=== PATIENT | male | born 1960 | race Caucasian/White ===

== ENCOUNTER 2024-11-22 12:30 | Inpatient (IN) | payer OTHER ==
[~2024-11-22] VITALS: Ht 177.8 cm; Wt 96.6 kg
--- NOTE | 2024-11-22 12:44 | ED.PDOC ---
SOB-HPI HPI Comments This is a 64-year-old male who comes in with chief complaint of shortness of breaths with no chest pain. The patient states that the shortness for breath actually started on the 07 of November. This past Tuesday, the patient went to [facility] and was given a prescription of Lasix for worsening CHF. He is also complaining of some leg swelling. He states that his shortness for breath worsens with exertion as well as laying flat. At that time the patient also had what seems to be an echocardiogram at [facility] and it was negative. He is having a cough that is productive with greenish sputum. He denies any nausea or vomiting. When the paramedics arrived on scene, the patient had an oxygen saturation between 88 and 91. The patient was placed on 2 L nasal cannula and the patient's oxygen saturation went up to 95%. When the patient was placed on a cardiac rhythm, the patient had a rhythm of atrial fibrillation at a rate of 120. He does state that he was diagnosed with atrial fibrillation at [facility] on Tuesday as well. Upon arrival, the patient remains on the oxygen nasal cannula. He is able to speak in full sentences. 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 Modifying Factors: Exertion, Laying flat Associated Signs and Symptoms: Cough, Leg Swelling Quality: Other (No chest pain) If cough with SOB: Productive, Green Past Medical History PAST MEDICAL HISTORY: Anemia, CHF, High Lipids Surgical History (Other): Cervical neck surgery Family History Family History: Family hx of Cancer Social History Smoker: Non-Smoker Alcohol: Occasionally Drugs: Denies Drug Use Lives In: Home Constitutional: denies: chills, diaphoresis, fatigue, fever, malaise, sweats, weakness, others EENTM: denies: blurred vision, double vision, ear bleeding, ear discharge, ear drainage, ear pain, ear ringing, eye pain, eye redness, hearing loss, mouth pain, mouth swelling, nasal discharge, nose bleeding, nose congestion, nose pain, photophobia, tearing, throat pain, throat swelling, voice changes, others Respiratory: reports: cough, shortness of breath; denies: hemoptysis, orthopnea, SOB at rest, SOB with excertion, stridor, wheezing, others Cardiovascular: denies: chest pain, dizzy spells, diaphoresis, Dyspnea on exertion, edema, irregular heart beat, left arm pain, lightheadedness, palpitations, PND, syncope, others Gastrointestinal: denies: abdomen distended, abdominal pain, blood streaked bowels, constipated, diarrhea, dysphagia, difficulty swallowing, hematemesis, melena, nausea, poor appetite, poor fluid intake, rectal bleeding, rectal pain, vomiting, others Genitourinary: denies: burning, dysuria, flank pain, frequency, hematuria, incontinence, penile discharge, penile sore, pain, testicle pain, testicle s welling, urgency, others Neurological: denies: dizziness, fainting, headache, left sided numbness, left sided weakness, numbness, paresthesia, pre-existing deficit, right sided numbness, right sided weakness, seizure, speech problems, tingling, tremors, weakness, others Musculoskeletal: reports: joint swelling; denies: back pain, gout, joint pain, muscle pain, muscle stiffness, neck pain, others Integumetry: denies: bruises, change in color, change in hair/nails, dryness, laceration, lesions, lumps, rash, wounds, others Allergic/Immunocompromised: denies: Difficulty Healing, Frequent Infections, Hives, Itching, others Hematologic/Lymphatic: denies: anemia, blood clots, easy bleeding, easy bruising, swollen glands, others Endocrine: denies: excessive hunger, excessive sweating, excessive thirst, excessive urination, flushing, intolerance to cold, intolerance to heat, unexplained weight gain, unexplained weight loss, others Psychiatric: denies: anxiety, bipolar disorder, depression, hopeless, panic disorder, schizophrenia, sleepless, suicidal, others Physical Exam General Appearance: Moderate Distress HEENT: Normal ENT Inspection, Pharynx Normal, TMs Normal Neck: Full Range of Motion, Non-Tender, Normal, Normal Inspection Respiratory: Chest Non-Tender, Decreased Breath Sounds, Lungs Clear, No Accessory Muscle Use, Respiratory Distress Cardiovascular: Irregular, No Edema, No JVD, No Murmur, No Gallop, Tachycardia Breast Exam: Deferred Gastrointestinal: No Organomegaly, Non Tender, No Pulsatile Mass, Normal Bowel Sounds, Soft Genitalia: Deferred Pelvic: Deferred Rectal: Deferred Extremities: No calf tenderness, Normal capillary refill, Pedal edema Musculoskeletal : Apperance: Normal 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 Was a procedure done?: No Differential Dx Differential Diagnosis: Asthma, Bronchitis, CHF, COPD X-Ray, Labs, Meds, VS Vital Signs Date Time Temp Pulse Resp B/P (MAP) Pulse Ox O2 Delivery O2 Flow Rate FiO2 11/22/24 14:04 96 11/22/24 13:22 119/64 11/22/24 13:18 110 19 96 Nasal Cannula* 2 28 11/22/24 13:18 99.0 110 19 119/64 (82) 96 99.0 11/22/24 13:15 101 11/22/24 12:55 119 11/22/24 12:47 99.4 127 20 129/79 (96) 94 11/22/24 12:31 119 Lab Test 11/22/24 14:01 11/22/24 13:57 11/22/24 13:41 Range/Units Influenza Type A Antigen Pending Influenza Type B Antigen Pending SARS-CoV-2 Antigen (Rapid) Pending Urine Color Yellow Yellow Urine Clarity Clear Clear Urine pH 5.5 5.0-9.0 Urine Specific [place] 1.017 1.001-1.035 Urine Protein Trace H Negative Urine Ketones 1+ H Negative Urine Blood Negative Negative /uL Urine Nitrite Negative Negative Urine Bilirubin Negative Negative Urine Urobilinogen 3 H Negative mg/dL Urine Leukocyte Esterase Negative Negative /uL Urine RBC 1 0 - 3 /hpf Urine WBC <1 0 - 3 /hpf Urine Squamous Epithelial Cells Few <5 /hpf Urine Bacteria None seen None Seen /hpf Urine Hyaline Casts Few 0 - 2 /lpf Urine Mucus Few None Seen Urine Glucose Normal Normal mg/dL White Blood Count 18.9 H 4.4-10.8 10^3/uL Red Blood Count 4.17 L 4.5-5.90 10^6/uL Hemoglobin 9.8 L 13.5-17.5 g/dL Hematocrit 30.8 L 41.0-53.0 % Mean Corpuscular Volume 73.8 L 80.0-100.0 fL Mean Corpuscular Hemoglobin 23.4 L 28.0-32.0 pg Mean Corpuscular Hemoglobin Concent 31.7 L 32.0-36.0 g/dL Red Cell Distribution Width 19.0 H 11.8-14.3 % Platelet Count 444 140-450 10^3/uL Mean Platelet Volume 8.3 6.9-10.8 fL Neutrophils (%) (Auto) 82.8 H 37.0-80.0 % Lymphocytes (%) (Auto) 6.0 L 10.0-50.0 % Monocytes (%) (Auto) 10.9 0.0-12.0 % Eosinophils (%) (Auto) 0.1 0.0-7.0 % Basophils (%) (Auto) 0.2 0.0-2.0 % Neutrophils # (Auto) 15.6 H 1.6-8.6 10 ^3/uL Lymphocytes # (Auto) 1.1 0.4-5.4 10 ^3/uL Monocytes # (Auto) 2.1 H 0-1.3 10 ^3/uL Eosinophils # (Auto) 0 0-0.8 10 ^3/uL Basophils # (Auto) 0 0-0.2 10 ^3/uL Nucleated Red Blood Cells 0.0 % Sodium Level 141 136-145 mmol/L Potassium Level 4.0 3.5-5.1 mmol/L Chloride Level 104 98-107 mmol/L Carbon Dioxide Level 25 20-31 mmol/L Anion Gap 12 5-15 Blood Urea Nitrogen 18 9-23 mg/dL Creatinine 1.15 0.700-1.30 mg/dL Glomerular Filtration Rate Calc 70 >90 mL/min BUN/Creatinine Ratio 15.7 10.0-20.0 Serum Glucose 119 H 74-106 mg/dL Calcium Level 9.5 8.7-10.4 mg/dL Magnesium Level 2.0 1.6-2.6 mg/dL Troponin I High Sensitivity 11 </=54 ng/L B-Type Natriuretic Peptide 168.14 0-100 pg/mL Current Medications Medications (Trade) Dose Ordered Sig/Jamil Route Start Time Stop Time Status Last Admin Furosemide (Lasix Injection) 40 mg ONCE ONCE IV 11/22/24 12:45 11/22/24 12:46 DC 11/22/24 13:22 CHEST RADIOGRAPH IMPRESSION: Left basilar opacity. IV Hep-Lock was established The patient was given Lasix 40 mg IV push The CBC shows an elevated white blood cell count of 18.9 The patient shows anemia with a hemoglobin of 9.8 and hematocrit of 30.8 The patient was platelets are within normal range The patient was deemed unstable for transfer The patient authorization number by [facility] is [id number] The patient was to continue with the digoxin. Most likely the patient will have a Cardiology consult as well as an echocardiogram to assess the patient's heart failure Images Reviewed?: Images reviewed and evaluated by id Time of 1ST Reevaluation: 12:54 Reevaluation 1ST: Unchanged Patient Education/Counseling: Diagnosis, Treatment, Prognosis Family Education/Counseling: No Family Present Departure 1 Departure Time of Disposition: 14:59 Impression: Primary Impression: Acute respiratory failure Qualified Codes: J96.00 - Acute respiratory failure, unspecified whether with hypoxia or hypercapnia Additional Impressions: Atrial fibrillation with rapid ventricular response Leukocytosis Qualified Codes: D72.829 - Elevated white blood cell count, unspecified Disposition: 09 ADMITTED INPATIENT Admit to: Tele Condition: Fair Critical Care Note Critical Care Time?: Yes (45 min-critical care time only) Stability Stability form required: Yes Unstable for transfer: Telemetry monitoring (Telemetry monitoring required), ED Physician Assesment (Clinical assesment) Heart Score Heart Score: Heart Score Response (Comments) Value History Moderate Suspicious 1 EKG Repolarization Disturb 1 Age >65 2 Risk Factors >3 or Hx ASHD 2 Troponin Normal limit 0 Total 6 I personally scribed for FLETCHER RAYMOND MD ([email or web address]) on 11/22/24 at 14:18. Electronically submitted by Alisson Lambert ([email or web address]). FLETCHER RAYMOND MD Nov 22, 2024 12:44
[2024-11-22 13:18] VITALS: PULSE 110; RESP 19; O2SAT 96
[2024-11-22] MEDS: FUROSEMIDE 40 MG/4 ML VIAL IV ONE ×2 (13:22→22:11)
--- NOTE | 2024-11-22 13:30 | DVH ---
CHEST RADIOGRAPH Indication: SOB Technique: Single frontal view of the chest was obtained Comparison: None FINDINGS: Lines and Tubes: None Lungs: Left basilar opacity. Pleura: No effusion. No pneumothorax. Cardiomediastinal contours: Unremarkable Bones: No acute osseous abnormality. IMPRESSION: Left basilar opacity.
[2024-11-22 14:17] LABS: Eosinophils # (auto) 0 10 ^3/uL (0-0.8); Hemoglobin 9.8 g/dL (13.5-17.5); Lymphocytes # (auto) 1.1 10 ^3/uL (0.4-5.4)
[2024-11-22 14:19] LABS: Basophils # (auto) 0 10 ^3/uL (0-0.2); Basophils % (auto) 0.2 % (0.0-2.0); Eosinophils % (auto) 0.1 % (0.0-7.0); Hematocrit 30.8 % (41.0-53.0); Mean Corpuscular Hemoglobin 23.4 pg (28.0-32.0); Mean Corpuscular Hgb Conc. 31.7 g/dL (32.0-36.0); Mean Corpuscular Volume 73.8 fL (80.0-100.0); Monocytes # (auto) 2.1 10 ^3/uL (0-1.3); Monocytes % (auto) 10.9 % (0.0-12.0); Neutrophils # (auto) 15.6 10 ^3/uL (1.6-8.6); Neutrophils % (auto) 82.8 % (37.0-80.0); Platelet Count (auto) 444 10^3/uL (140-450); Red Blood Cells 4.17 10^6/uL (4.5-5.90); White Blood Cell 18.9 10^3/uL (4.4-10.8)
[2024-11-22 14:25] LABS: Anion Gap 12 (5-15); Carbon Dioxide 25 mmol/L (20-31); Chloride 104 mmol/L (98-107); Sodium 141 mmol/L (136-145)
[2024-11-22 14:26] LABS: Calcium 9.5 mg/dL (8.7-10.4)
[2024-11-22 14:31] LABS: BUN/Creatinine Ratio 15.7 (10.0-20.0); Blood Urea Nitrogen 18 mg/dL (9-23)
[2024-11-22 14:32] LABS: Urine Bacteria None Seen /hpf (None Seen)
[2024-11-22 14:41] LABS: Glucose 119 mg/dL (74-106)
[2024-11-22 14:49] LABS: Urine Blood Negative /uL (Negative); Urine Clarity Clear (Clear); Urine Color Yellow (Yellow); Urine Hyaline Cast FEW /lpf (0 - 2); Urine Mucus FEW (None Seen); Urine Protein, UAD TRACE (Negative); Urine Specific Gravity 1.017 (1.001-1.035); Urine Squamous Epithelial Cell FEW /hpf (<5); Urine Urobilinogen 3 mg/dL (Negative); Urine WBC <1 /hpf (0 - 3); Urine pH 5.5 (5.0-9.0)
[2024-11-22] MEDS ORDERED: LABETALOL HCL 20 MG/4 ML VL IV ONE (15:00)
[2024-11-22] MEDS: DIGOXIN (250MCG/ML) 2 ML AMPULE IV ONE (15:05)
[2024-11-22 15:44] LABS: COVID19 ANTIGEN SOFIA FIA NEGATIVE (NEGATIVE); Rapid Influenza A Negative (Negative); Rapid Influenza B Negative (Negative)
[2024-11-22] MEDS: ACETAMINOPHEN 325 MG TAB PO ONE (16:30)
[2024-11-22 16:45] LABS: Base Excess 2.3 mmol/L (-2.0-3.0)
[2024-11-22] MEDS: HYDROcodone-ACET 10/325MG TAB PO ONE (16:49)
[2024-11-22 19:30] VITALS: PULSE 109; RESP 25; O2SAT 97
[2024-11-22] MEDS: ENOXAPARIN SOD 100 MG/1 ML SYRINGE SC ONE (20:31)
[2024-11-22] MEDS: IOHEXOL 300 MG/ML 100ML BOTTLE IJ ONE (20:47)
--- NOTE | 2024-11-22 21:33 | DVH ---
CLINICAL HISTORY: leg pain TECHNIQUE: Color and duplex doppler imaging of the bilateral lower extremity veins was performed. Ves jessie compression if possible was also performed. WID: COMPARISON: None FINDINGS: Right Lower Extremity: Right common femoral vein: Normal compressibility and flow. Right femoral vein: Normal compressibility and flow. Right popliteal vein: Normal compressibility and flow. Proximal calf veins are normally compressible. Harvey's cyst in the right popliteal fossa measuring 5.6 x 1.7 x 1.0 Moderate subcutaneous edema in the right calf Left Lower Extremity: Left common femoral vein: Normal compressibility and flow. Left femoral vein: Normal compressibility and flow. Left popliteal vein: Normal compressibility and flow. Proximal calf veins are normally compressible. Harvey's cysts in the left popliteal fossa measuring 3.2 x 1.9 x 0.7 cm. Moderate subcutaneous edema in the left calf. IMPRESSION: 1. NO SONOGRAPHIC EVIDENCE FOR DEEP VENOUS THROMBOSIS IN THE BILATERAL LOWER EXTREMITY VEINS. 2. Bilateral harvey's cysts. 3. Moderate subcutaneous edema in the bilateral calves
--- NOTE | 2024-11-22 22:02 | DVHHPRES ---
History of Present Illness Resident Creating Document: LEE ALFARO RESIDENT History of Present Illness Patient is a 64-year-old male with past medical history of CHF, anemia, neuropathy, dyslipidemia, atrial fibrillation diagnosed 2 weeks ago?, who came in due to shortness of breath. According to the patient, he has been having worsening shortness of breath for a few weeks. He notes that he has shortness of breath even at rest along with orthopnea and paroxysmal nocturnal dyspnea. He also complains of a productive cough with whitish sputum. Per patient, he recently completed cardiac workup at [facility] where he was told that the workup was unremarkable. On review of systems he is complaining of fatigue, shortness of breath, productive cough, dyspnea and urinary frequency. Chest x-ray showed left basilar opacities. CT angiography showed no pulmonary embolism, moderate pericardial effusion and trace left-sided pleural effusion. Past Medical History Atrial fibrillation, CHF, anemia, neuropathy, dyslipidemia Past Surgical History Laminectomy Smoke: No ALCOHOL: rare Drugs: None Lives: with Family Review of Systems Constitutional: Yes: Malaise; No: Fever, Chills, Sweats, Weakness, Other Eyes: No: Pain, Vision change, Conjunctivae inflammation, Eyelid inflammation, Other, Redness ENT: No: Ear pain, Ear discharge, Nose pain, Nose discharge, Nose congestion, Mouth pain, Mouth swelling, Throat pain, Throat swelling, Other Respiratory: Cough, Dry, Shortness of breath, SOB with excertion; No: Wheezing, Hemoptysis, Pleuritic Pain, Sputum, Wheezing, Other Cardiovascular: Paroxysmal Noc. Dyspnea, Edema; No: Chest Pain, Palpitations, Orthopnea, Lt Headedness, Other Gastrointestinal: No: Nausea, Vomiting, Abdominal Pain, Diarrhea, Constipation, Melena, Hematochezia, Other Genitourinary: No Dysuria; Frequency; No Incontinence, No Hematuria, No Retention, No Other Musculoskeletal: No: other, neck pain, shoulder pain, arm pain, back pain, hand pain, leg pain, foot pain Skin: No: Rash, Lesions, Jaundice, Bruising, Other Neurological: No: Weakness, Numbness, Incoordination, Change in speech, Confusion, Seizures, Other Allergies: Coded Allergies: Duloxetine (Verified Allergy, Unknown, 11/22/24) FD&C Blue #2 (Indigotine) (Verified Allergy, Unknown, 11/22/24) Medications Current Medications Medications Dose Ordered Sig/Jamil Route Start Time Stop Time Status Last Admin Dose Admin Furosemide 40 mg DAILY IV 11/23/24 10:00 Azithromycin 250 ml @ 125 mls/hr DAILY IV 11/23/24 10:00 UNV Ceftriaxone Sodium 50 ml @ 100 mls/hr DAILY@09 IV 11/23/24 09:00 Ipratropium [place] 0.5 mg Q8HR NEB 11/22/24 22:00 Levalbuterol HCl 1.25 mg Q8HR NEB 11/22/24 22:00 Enoxaparin Sodium 100 mg Q12HR SC 11/23/24 10:00 UNV Famotidine 20 mg Q12HR IV 11/22/24 22:00 Exam Vital Signs Vital Signs Date Time Temp Pulse Resp B/P (MAP) Pulse Ox O2 Delivery O2 Flow Rate FiO2 11/22/24 21:06 124 11/22/24 19:30 98.6 23 136/75 (95) 96 98.6 11/22/24 19:30 Nasal Cannula* 2 28 General Appearance: Alert, Oriented X3, Cooperative, moderate distress HEENT: Atraumatic, PERRLA, EOMI, Mucous membr. moist/pink Respiratory: Clear to auscultation (In atrial fibrillation with RVR) Abdominal: Normal bowel sounds, Soft, No tenderness Extremities: No clubbing, No cyanosis, Other (2+ lower extremity edema) Skin: No rashes, No significant lesion Neuro: Strength at 5/5 X4 ext Psych/Mental Status: Mental status NL, Mood NL Labs/Xrays Labs Test 11/22/24 17:59 11/22/24 16:31 11/22/24 16:00 11/22/24 14:01 Range/Units Troponin I High Sensitivity 13 </=54 ng/L Blood Gas Specimen Type Arterial Blood Gas Sample Site Left radial Blood Gas Patient Temperature 37.0 Arterial Blood Date Drawn [id number] Arterial Blood pH 7.456 H 7.350-7.450 Arterial Blood Partial Pressure CO2 38.1 35.0-48.0 mmHg Arterial Blood Partial Pressure O2 81.4 L 83.0-108.0 mmHg Arterial Blood HCO3 26.2 21.0-28.0 mmol/L Arterial Blood Oxygen Saturation 95.5 94.0-98.0 % Arterial Blood Base Excess 2.3 -2.0-3.0 mmol/L Arterial Blood Oxyhemoglobin 94.4 94.0-98.0 % Arterial Blood Carboxyhemoglobin 0.4 L 0.5-1.5 % Arterial Blood Methemoglobin 0.8 0.0-1.5 % Anibal Test Yes Blood Gas Total Hemoglobin 10.90 L 13.5-17.5 g/dL Blood Gas Liter Flow 2.50 Blood Gas Modality Nasal cannula FiO2 % 30.0 Lactic Acid Level 1.2 0.4-2.0 mmol/L Influenza Type A Antigen Negative Negative Influenza Type B Antigen Negative Negative SARS-CoV-2 Antigen (Rapid) Negative NEGATIVE Test 11/22/24 13:57 11/22/24 13:41 Range/Units Urine Color Yellow Yellow Urine Clarity Clear Clear Urine pH 5.5 5.0-9.0 Urine Specific [place] 1.017 1.001-1.035 Urine Protein Trace H Negative Urine Ketones 1+ H Negative Urine Blood Negative Negative /uL Urine Nitrite Negative Negative Urine Bilirubin Negative Negative Urine Urobilinogen 3 H Negative mg/dL Urine Leukocyte Esterase Negative Negative /uL Urine RBC 1 0 - 3 /hpf Urine WBC <1 0 - 3 /hpf Urine Squamous Epithelial Cells Few <5 /hpf Urine Bacteria None seen None Seen /hpf Urine Hyaline Casts Few 0 - 2 /lpf Urine Mucus Few None Seen Urine Glucose Normal Normal mg/dL White Blood Count 18.9 H 4.4-10.8 10^3/uL Red Blood Count 4.17 L 4.5-5.90 10^6/uL Hemoglobin 9.8 L 13.5-17.5 g/dL Hematocrit 30.8 L 41.0-53.0 % Mean Corpuscular Volume 73.8 L 80.0-100.0 fL Mean Corpuscular Hemoglobin 23.4 L 28.0-32.0 pg Mean Corpuscular Hemoglobin Concent 31.7 L 32.0-36.0 g/dL Red Cell Distribution Width 19.0 H 11.8-14.3 % Platelet Count 444 140-450 10^3/uL Mean Platelet Volume 8.3 6.9-10.8 fL Neutrophils (%) (Auto) 82.8 H 37.0-80.0 % Lymphocytes (%) (Auto) 6.0 L 10.0-50.0 % Monocytes (%) (Auto) 10.9 0.0-12.0 % Eosinophils (%) (Auto) 0.1 0.0-7.0 % Basophils (%) (Auto) 0.2 0.0-2.0 % Neutrophils # (Auto) 15.6 H 1.6-8.6 10 ^3/uL Lymphocytes # (Auto) 1.1 0.4-5.4 10 ^3/uL Monocytes # (Auto) 2.1 H 0-1.3 10 ^3/uL Eosinophils # (Auto) 0 0-0.8 10 ^3/uL Basophils # (Auto) 0 0-0.2 10 ^3/uL Nucleated Red Blood Cells 0.0 % D-Dimer, Quantitative 7.31 H 0.0-0.49 mg/L FEU Sodium Level 141 136-145 mmol/L Potassium Level 4.0 3.5-5.1 mmol/L Chloride Level 104 98-107 mmol/L Carbon Dioxide Level 25 20-31 mmol/L Anion Gap 12 5-15 Blood Urea Nitrogen 18 9-23 mg/dL Creatinine 1.15 0.700-1.30 mg/dL Glomerular Filtration Rate Calc 70 >90 mL/min BUN/Creatinine Ratio 15.7 10.0-20.0 Serum Glucose 119 H 74-106 mg/dL Calcium Level 9.5 8.7-10.4 mg/dL Magnesium Level 2.0 1.6-2.6 mg/dL B-Type Natriuretic Peptide 168.14 0-100 pg/mL Assessment/Plan Assessment/Plan Acute hypoxic respiratory failure Pericardial effusion, moderate Acute on chronic CHF Atrial fibrillation with RVR; CHADS VASc 3 Ruled out pulmonary embolism - lower extremity Doppler: NO SONOGRAPHIC EVIDENCE FOR DEEP VENOUS THROMBOSIS IN THE BILATERAL LOWER EXTREMITY VEINS. Bilateral faulkner's cysts. Moderate subcutaneous edema in the bilateral calves - CT angiography: No pulmonary embolism. Moderate pericardial effusion. Left lower lobe pneumonia. Trace left pleural effusion. - IV digoxin 250 mcg once - Lovenox 100 mg subcutaneous once - IV Lasix 40 mg daily - ordered echocardiogram - cardiology consulted Community-acquired pneumonia, Gram-positive versus Gram-negative Questionable sepsis due to above - CXR: Left basilar opacity - IV azithromycin, IV ceftriaxone - levalbuterol and ipratropium med nebs Anemia, chronic - monitor Peripheral neuropathy since undergoing laminectomy - monitor PUD prophylaxis: Pepcid 20 mg b.i.d. Goals of care: Full code, discussed for >16 minutes on 11/22/24 Plan discussed with patient Plan discussed with Dr. Barnes Plan discussed with: Patient, Other (RN) My Orders Orders - LEE ALFARO RESIDENT Procedure Category Date Status Time Admit ADMIT 11/22/24 Transmitted 21:53 Oxygen By Nasal RT 11/22/24 Transmitted Cannula 21:53 Notify Of Changes FLOR 11/22/24 In Process From Base 21:53 Blood Culture HEATHER 11/22/24 Logged 21:53 Respiratory Culture HEATHER 11/22/24 Logged W/ Gs 21:53 Thyroid Stimulating LAB 11/22/24 Logged Hormone 21:53 Incentive Spirometry ORDERS 11/22/24 Transmitted 21:53 * Cardiology Consult CONS 11/22/24 Transmitted 21:53 Echo 2d Mode Cardiac US 11/22/24 Logged DOP 21:53 Furosemide Injection PHA 11/23/24 In Process (Lasix Injection) 10:00 Azithromycin 500mg/ PHA 11/23/24 Logged 250ml (Zithromax 50 10:00 Azithromycin 500mg/ PHA 11/22/24 In Process 250ml (Zithromax 50 22:00 Ceftriaxone 1gm/50ml PHA 11/23/24 In Process D5w (Rocephin) 09:00 Ceftriaxone 1gm/50ml PHA 11/22/24 In Process D5w (Rocephin) 22:00 Ipratropium Medneb PHA 11/22/24 In Process (Atrovent Medneb) 22:00 Levalbuterol Hcl PHA 11/22/24 In Process (Xopenex Medneb) 22:00 Enoxaparin Sodium PHA 11/23/24 Logged (Lovenox) 10:00 Famotidine Injection PHA 11/22/24 In Process (Pepcid Injection) 22:00 Date of Service: Nov 22, 2024 Billing Provider: JANINE BARNES MD Common Visit Codes: 96150-[id number] INP/OBS CARE (HIGH) Secondary Visit Codes: 97928-[id number] CARE PLAN 30 MINUTES LEE ALFARO Nov 22, 2024 22:02 JANINE BARNES MD Nov 23, 2024 09:05
[2024-11-22] MEDS: FAMOTIDINE (10MG/ML) 2ML VL IV SCH (22:11)
[2024-11-22] MEDS: cefTRIAXone 1GM/50ML D5W 50 ML IV ONE (22:12)
[2024-11-22 22:17] VITALS: PULSE 108; RESP 16; O2SAT 98
[2024-11-22] MEDS: IPRATROPIUM BROM 0.5 MG/2.5ML INH SOL NEB SCH (22:19)
[2024-11-22] MEDS: LEVALBUTEROL HCL 1.25 MG/3 ML NEB NEB SCH (22:19)
[2024-11-22 22:22] VITALS: PULSE 123; RESP 20; O2SAT 100
[2024-11-22] MEDS: AZITHROMYCIN 500MG/ 250ML 250 ML IV ONE (23:12)
--- NOTE | 2024-11-22 23:46 | DVH ---
CTA Chest with intravenous contrast INDICATION: sob COMPARISON: None TECHNIQUE: Multidetector spiral CTA of the chest was performed of the chest with intravenous contrast . PULMONARY ANGIOGRAPHY PROTOCOL was utilized using a bolus-tracking technique centered on the main p ulmonary artery. Axial, coronal and sagittal multiplanar and MIP reformats were performed. Radiation Dose : 1. Chest: CTDI volume is 26.8 mGy. Dose-length product is 1873 mGy*cm The dose indicators for CT are the volume Computed Tomography (CT) Dose Index (CTDIvol) and the Dose Length Product (DLP), and are measured in units of mGy and mGy-cm, respectively. These indicators are not patient dose, but values generated from the CT scanner acquisition factors. The report includes radiation exposure data for exposures received during this examination. Findings: Pulmonary artery: No pulmonary embolism Lower neck: Normal thyroid. Lungs: Left lower lobe consolidation which may reflect pneumonia. Heart/Vascular Structures: Normal heart size. Moderate pericardial effusion Lymph Nodes: Prominent mediastinal lymph nodes, likely reactive. Pleura: Trace left pleural effusion. Musculoskeletal: No acute osseous abnormality. Soft tissues: Normal. Upper abdomen: Limited portions of the upper abdomen are unremarkable. IMPRESSION: 1. No pulmonary embolism. 2. Moderate pericardial effusion. 3. Left lower lobe pneumonia. 4. Trace left pleural effusion.
[2024-11-23] VITALS (13 sets, daily range): BP systolic 114–153; BP diastolic 47–76; PULSE 83–137; RESP 17–22; TEMP 97.7–99.2; O2SAT 91–100
[2024-11-23] MEDS: ACETAMINOPHEN 325 MG TAB PO ONE (02:29)
[2024-11-23] MEDS: ACETAMINOPHEN IV 1000 MG/100ML (10MG/ML) IV ONE (02:59)
[2024-11-23] MEDS ORDERED: HYDR-4902 PO (04:56)
[2024-11-23] MEDS: FUROSEMIDE 40 MG/4 ML VIAL IV SCH (09:39)
[2024-11-23] MEDS: AZITHROMYCIN 500MG/ 250ML 250 ML IV SCH (09:40)
[2024-11-23] MEDS: cefTRIAXone 1GM/50ML D5W 50 ML IV SCH (09:40)
[2024-11-23] MEDS ORDERED: ENOXAPARIN SOD 100 MG/1 ML SYRINGE SC SCH (10:00)
--- NOTE | 2024-11-23 10:00 | DVHINCON2 ---
JAVIER ESPINOSA [facility] 11/23/24 1000: Date Seen: Nov 23, 2024 Referring Physician MD Carol Ann Reason for Consultation A-fib, pericardial effusion History of Present Illness This is a 64-year-old man who presented to the emergency room via EMS with a chief complaint of shortness of breath for three weeks. The patient complains of progressive shortness of breath associated with orthopnea, PND, MARTINEZ, and bilateral lower extremity edema. Denies chest pain, palpitations or diaphoresis. He underwent multiple 12 lead electrocardiograms revealing an atrial fibrillation rhythm with rapid ventricular rate in the 120s bpm and associated inferolateral T-wave inversion. Serial troponin levels are negative. The patient denies any history of cardiovascular disease stating he underwent cardiac workup including an unremarkable transthoracic echocardiogram at [facility] approximately five months ago. Significant medical history includes dyslipidemia, anemia, peripheral neuropathy, and obesity. Past Medical History Past medical history reviewed. No other significant than mentioned above. Past Surgical History Laminectomy Knee surgery Family History: Patient reports no known family medical history. Family History Family history. Not significant for cardiovascular disease. Social History Denies the use of illicit drugs or tobacco use. Admits to rare alcohol use. Allergies: Coded Allergies: Duloxetine (Verified Allergy, Unknown, 11/22/24) FD&C Blue #2 (Indigotine) (Verified Allergy, Unknown, 11/22/24) Home Meds Reported Medications Meloxicam (Meloxicam) 15 Mg Tab, 1 TAB PO DAILY, #30 TAB 2 Refills 11/23/24 Pregabalin (Lyrica) 75 Mg Cap, 225 MG PO BID, CAP 11/23/24 Ascorbic Acid (VITAMIN C TABLET) 500 Mg Tb, 1 TAB PO DAILY, #30 TAB 3 Refills 11/23/24 Omeprazole (Gnp Omeprazole) 20 Mg Tab, 1 TAB PO DAILY, #30 TAB 3 Refills 11/23/24 Ferrous Sulfate (Iron (Ferrous Sulfate)) 50 Mg Tab, 325 MG PO DAILY, TAB 11/23/24 Baclofen (Baclofen) 10 Mg Tab, 20 MG PO Q8HP for 30 Days, MG 11/23/24 Atorvastatin Calcium (ATORVASTATIN CALCIUM) 40 Mg Tab, 1 TAB PO DAILY, #30 TAB 5 Refills 11/23/24 Furosemide (Furosemide) 40 Mg Tab, 40 MG PO DAILY for 30 Days 11/23/24 Hydrocodone-Acetaminophen (Hydrocodone Bitartrate/AC 5-325 mg) 1 Tab Tab, 1 TAB PO QID, TAB 11/23/24 Home Meds Home medications reviewed. Current Medications Current Medications Medications (Trade) Dose Ordered Sig/Jamil Route PRN Reason Start Time Stop Time Status Last Admin Furosemide (Lasix Injection) 40 mg DAILY IV 11/23/24 10:00 11/23/24 09:39 Azithromycin 250 ml @ 125 mls/hr DAILY IV 11/23/24 10:00 11/23/24 09:40 Ceftriaxone Sodium 50 ml @ 100 mls/hr DAILY@09 IV 11/23/24 09:00 11/23/24 09:40 Ipratropium [place] (Atrovent Medneb) 0.5 mg Q8HR NEB 11/22/24 22:00 11/23/24 06:22 Levalbuterol HCl (Xopenex Medneb) 1.25 mg Q8HR NEB 11/22/24 22:00 11/23/24 06:22 Enoxaparin Sodium (Lovenox) 100 mg Q12HR SC 11/23/24 10:00 Famotidine (Pepcid Injection) 20 mg Q12HR IV 11/22/24 22:00 11/23/24 09:39 Review of Systems Constitutional: No symptom reported Ears, Nose, & Throat: No symptom reported Eyes: No symptom reported Neurological: No symptoms reported Pulmonary/Respiratory: SOB, MARTINEZ, orthopnea, PND Cardiovascular: BLE edema Gastrointestinal: No symptom reported Genitourinary: No symptom reported Musculoskeletal: No symptom reported Skin: No symptom reported Psychiatric: No symptom reported Endocrine: No symptom reported Hemotologic/Lymphatic: No symptom reported Vital Signs Vital Signs Date Time Temp Pulse Resp B/P (MAP) Pulse Ox O2 Delivery O2 Flow Rate FiO2 11/23/24 09:39 131/75 11/23/24 09:02 97.7 83 22 92 97.7 11/23/24 06:22 Nasal Cannula 2.0 11/23/24 06:22 28 Physical Exam General Appearance: Cooperative. Lethargic. Obese. Mild acute distress Head Exam: Normal inspection Neck Exam: Normal inspection. Normal alignment Pulmonary/Respiratory: Diminished/distant coarse bilateral breath sounds. Tachypneic Cardiovascular/Chest: Irregularly irregular rate and rhythm. Atrial fibrillation with T-wave inversion to inferolateral leads. No murmurs. + JVD. Peripheral Pulses: 2+ Radial (R). 2+ Radial (L). 2+ Pedal (R). 2+ Pedal (L) Abdominal Exam: Normal bowel sounds. Soft. Nontender. No hepatospenomegaly. No masses Ankle Exam: Positive ankle edema, 4+ Lower extremities: Positive lower extremity edema, 4+ Neuro/Mental Status: A&O x4. Coherent Thoughts/Psych: Normal thought pattern. Appropriate mood and affect. Flat affect Appearance: Mild acute distress Skin Exam: Normal inspection. Normal color. Warm. Dry Labs/Diagnostic Data Labs Test 11/22/24 17:59 11/22/24 16:31 11/22/24 16:00 11/22/24 14:01 Range/Units Troponin I High Sensitivity 13 </=54 ng/L Thyroid Stimulating Hormone (TSH) 1.12 0.55-4.78 uIU/mL Blood Gas Specimen Type Arterial Blood Gas Sample Site Left radial Blood Gas Patient Temperature 37.0 Arterial Blood Date Drawn [id number] Arterial Blood pH 7.456 H 7.350-7.450 Arterial Blood Partial Pressure CO2 38.1 35.0-48.0 mmHg Arterial Blood Partial Pressure O2 81.4 L 83.0-108.0 mmHg Arterial Blood HCO3 26.2 21.0-28.0 mmol/L Arterial Blood Oxygen Saturation 95.5 94.0-98.0 % Arterial Blood Base Excess 2.3 -2.0-3.0 mmol/L Arterial Blood Oxyhemoglobin 94.4 94.0-98.0 % Arterial Blood Carboxyhemoglobin 0.4 L 0.5-1.5 % Arterial Blood Methemoglobin 0.8 0.0-1.5 % Anibal Test Yes Blood Gas Total Hemoglobin 10.90 L 13.5-17.5 g/dL Blood Gas Liter Flow 2.50 Blood Gas Modality Nasal cannula FiO2 % 30.0 Lactic Acid Level 1.2 0.4-2.0 mmol/L Influenza Type A Antigen Negative Negative Influenza Type B Antigen Negative Negative SARS-CoV-2 Antigen (Rapid) Negative NEGATIVE Test 11/22/24 13:57 11/22/24 13:41 Range/Units Urine Color Yellow Yellow Urine Clarity Clear Clear Urine pH 5.5 5.0-9.0 Urine Specific [place] 1.017 1.001-1.035 Urine Protein Trace H Negative Urine Ketones 1+ H Negative Urine Blood Negative Negative /uL Urine Nitrite Negative Negative Urine Bilirubin Negative Negative Urine Urobilinogen 3 H Negative mg/dL Urine Leukocyte Esterase Negative Negative /uL Urine RBC 1 0 - 3 /hpf Urine WBC <1 0 - 3 /hpf Urine Squamous Epithelial Cells Few <5 /hpf Urine Bacteria None seen None Seen /hpf Urine Hyaline Casts Few 0 - 2 /lpf Urine Mucus Few None Seen Urine Glucose Normal Normal mg/dL White Blood Count 18.9 H 4.4-10.8 10^3/uL Red Blood Count 4.17 L 4.5-5.90 10^6/uL Hemoglobin 9.8 L 13.5-17.5 g/dL Hematocrit 30.8 L 41.0-53.0 % Mean Corpuscular Volume 73.8 L 80.0-100.0 fL Mean Corpuscular Hemoglobin 23.4 L 28.0-32.0 pg Mean Corpuscular Hemoglobin Concent 31.7 L 32.0-36.0 g/dL Red Cell Distribution Width 19.0 H 11.8-14.3 % Platelet Count 444 140-450 10^3/uL Mean Platelet Volume 8.3 6.9-10.8 fL Neutrophils (%) (Auto) 82.8 H 37.0-80.0 % Lymphocytes (%) (Auto) 6.0 L 10.0-50.0 % Monocytes (%) (Auto) 10.9 0.0-12.0 % Eosinophils (%) (Auto) 0.1 0.0-7.0 % Basophils (%) (Auto) 0.2 0.0-2.0 % Neutrophils # (Auto) 15.6 H 1.6-8.6 10 ^3/uL Lymphocytes # (Auto) 1.1 0.4-5.4 10 ^3/uL Monocytes # (Auto) 2.1 H 0-1.3 10 ^3/uL Eosinophils # (Auto) 0 0-0.8 10 ^3/uL Basophils # (Auto) 0 0-0.2 10 ^3/uL Nucleated Red Blood Cells 0.0 % D-Dimer, Quantitative 7.31 H 0.0-0.49 mg/L FEU Sodium Level 141 136-145 mmol/L Potassium Level 4.0 3.5-5.1 mmol/L Chloride Level 104 98-107 mmol/L Carbon Dioxide Level 25 20-31 mmol/L Anion Gap 12 5-15 Blood Urea Nitrogen 18 9-23 mg/dL Creatinine 1.15 0.700-1.30 mg/dL Glomerular Filtration Rate Calc 70 >90 mL/min BUN/Creatinine Ratio 15.7 10.0-20.0 Serum Glucose 119 H 74-106 mg/dL Calcium Level 9.5 8.7-10.4 mg/dL Magnesium Level 2.0 1.6-2.6 mg/dL B-Type Natriuretic Peptide 168.14 0-100 pg/mL Assessment Sepsis with PNA Acute decompensated HFpEF, NYHA Class IV Atrial fibrillation with rapid ventricular rate, newly diagnosed Pericardial effusion, moderate degree Rule out structural heart disease Prediabetes, newly diagnosed Anemia Obesity Plan/Recommendation (Dr. Baeza) The patient presents with an acute exacerbation of heart failure in combination with sepsis with pneumonia. We will continue further cardiac evaluation with a transthoracic echocardiogram. In the meantime, initiate dobutamine drip for inotropic support and Lasix drip for preload reduction. Continue strict I&Os, daily weight, and fluid restrictions. Given onset of symptoms over 48 hours avoid antiarrhythmic agents. Initiate rate control AV natalie blocking agents when off dobutamine drip. Continue therapeutic Lovenox and transition to DOAC therapy when appropriate. [id number] Score 3 points, HAS-BLED Score 1 point. Pericardial tamponade not suspected at this time. ABX therapy per primary care team. Monitor ECG changes closely and notify. Thank you for allowing us to participate in this patient's care. Please call if you have any questions or concerns. Critical care time: 40 min. This medical document was created using an electronic medical record system with voice recognition software and computerized dictation system. Although this document has been carefully reviewed, there might still be some phonetic and typographical errors. Occasional wrong-word or ``sound-alike substitutions may have occurred due to the inherent limitations of voice recognition software. These areas are purely typographical due to imperfections of the software programs and do not reflect any compromise in the patient's medical care. Please read the chart carefully and recognize, using context, where these substitutions have occurred. Plan discussed with: Patient, Other NYHA Physical activity limitations: NA Date of Service: Nov 23, 2024 Billing Provider: JAVIER ESPINOSA Cardiology Common Codes: [id number] CARE 30-74 MIN ANNIKA BAEZA MD 11/23/24 1714: Family History: Patient reports no known family medical history. Allergies: Coded Allergies: Duloxetine (Verified Allergy, Unknown, 11/22/24) FD&C Blue #2 (Indigotine) (Verified Allergy, Unknown, 11/22/24) Home Meds Reported Medications Meloxicam (Meloxicam) 15 Mg Tab, 1 TAB PO DAILY, #30 TAB 2 Refills 11/23/24 Pregabalin (Lyrica) 75 Mg Cap, 225 MG PO BID, CAP 11/23/24 Ascorbic Acid (VITAMIN C TABLET) 500 Mg Tb, 1 TAB PO DAILY, #30 TAB 3 Refills 11/23/24 Omeprazole (Gnp Omeprazole) 20 Mg Tab, 1 TAB PO DAILY, #30 TAB 3 Refills 11/23/24 Ferrous Sulfate (Iron (Ferrous Sulfate)) 50 Mg Tab, 325 MG PO DAILY, TAB 11/23/24 Baclofen (Baclofen) 10 Mg Tab, 20 MG PO Q8HP for 30 Days, MG 11/23/24 Atorvastatin Calcium (ATORVASTATIN CALCIUM) 40 Mg Tab, 1 TAB PO DAILY, #30 TAB 5 Refills 11/23/24 Furosemide (Furosemide) 40 Mg Tab, 40 MG PO DAILY for 30 Days 11/23/24 Hydrocodone-Acetaminophen (Hydrocodone Bitartrate/AC 5-325 mg) 1 Tab Tab, 1 TAB PO QID, TAB 11/23/24 Plan/Recommendation echo reviewed, pt likely has severe diastolic hf, cannot rule out amyloid or constriction diruetics for now fu with [facility] after dc JAVIER ESPINOSA Nov 23, 2024 10:00 ANNIKA BAEZA MD Nov 23, 2024 17:14
[2024-11-23 10:54] LABS: Basophils # (auto) 0 10 ^3/uL (0-0.2); Basophils % (auto) 0.2 % (0.0-2.0); Eosinophils # (auto) 0 10 ^3/uL (0-0.8); Eosinophils % (auto) 0.3 % (0.0-7.0); Hematocrit 31.6 % (41.0-53.0); Hemoglobin 10.1 g/dL (13.5-17.5); Lymphocytes # (auto) 0.6 10 ^3/uL (0.4-5.4); Lymphocytes % (auto) 5.3 % (10.0-50.0); Mean Corpuscular Hemoglobin 23.7 pg (28.0-32.0); Monocytes # (auto) 1.8 10 ^3/uL (0-1.3); Monocytes % (auto) 17.1 % (0.0-12.0); Neutrophils # (auto) 8.1 10 ^3/uL (1.6-8.6); Neutrophils % (auto) 77.1 % (37.0-80.0); Platelet Count (auto) 446 10^3/uL (140-450); Red Blood Cells 4.27 10^6/uL (4.5-5.90); Red Cell Distribution Width 18.6 % (11.8-14.3); White Blood Cell 10.5 10^3/uL (4.4-10.8)
[2024-11-23] MEDS ORDERED: DIGOXIN (250MCG/ML) 2 ML AMPULE IV ONE (11:00)
[2024-11-23 11:05] LABS: Anion Gap 11 (5-15); Carbon Dioxide 28 mmol/L (20-31); Chloride 101 mmol/L (98-107); Potassium 3.7 mmol/L (3.5-5.1); Sodium 140 mmol/L (136-145)
[2024-11-23 11:11] LABS: BUN/Creatinine Ratio 17.1 (10.0-20.0); Blood Urea Nitrogen 21 mg/dL (9-23); Glucose 140 mg/dL (74-106); LDL Cholesterol 53 mg/dL (< 100); Triglycerides 90 mg/dL (< 150)
[2024-11-23 11:13] LABS: Cholesterol 99 mg/dL (< 200)
[2024-11-23 11:14] LABS: HDL Cholesterol 24 mg/dL (40-59)
[2024-11-23] MEDS: FUROSEMIDE INJECTION 100 MG in SODIUM CHL 0.9% 100 ML IV SCH (13:01)
[2024-11-23] MEDS: DOBUTamine 1000MCG/ML 250 ML IV SCH (13:13)
[2024-11-23] MEDS ORDERED: BACL10TA PO (14:28)
[2024-11-23] MEDS ORDERED: MELO15TA29 PO (14:28)
[2024-11-23] MEDS ORDERED: FERR1TAB36 PO (14:28)
[2024-11-23] MEDS ORDERED: OMEP20TA PO (14:28)
[2024-11-23] MEDS ORDERED: PREG75CA PO (14:28)
[2024-11-23] MEDS ORDERED: ATOR40TA52 PO (14:28)
[2024-11-23] MEDS ORDERED: ASCO500T11 PO (14:28)
[2024-11-23] MEDS ORDERED: FURO40TA4 PO (14:28)
[2024-11-23] MEDS: ENOXAPARIN SOD 40 MG/0.4 ML SYRINGE SC ONE (15:11)
--- NOTE | 2024-11-23 15:26 | ECG ---
[facility] Test Date: 2024-11-22 Test Time: 14:04:29 Pat Name: MARIELLA LOO Department: ED Room: 0289T A Gender: M Tig Welder: ROSANNA : 1960 Requested By: FLETCHER RAYMOND Order Number: [id number] Reading MD: Ranjan Dorantes Measurements Intervals [place] Rate: 96 P: 0 VT: 0 QRS: 59 QRSD: 98 T: -81 QT: 311 QTc: 393 Interpretive Statements Atrial fibrillation Ventricular premature complex Borderline T abnormalities, diffuse leads Electronically Signed On 11-25-2024 15:49:07 PST by Ranjan Dorantes Please click the below link to view image of tracing.
--- NOTE | 2024-11-23 16:09 | DVHSR ---
APPROVED REPORT EXAM: Two-dimensional and M-mode echocardiogram with Doppler and color Doppler. Blood Pressure: 148/73 mmHg INDICATION Dyspnea RISK FACTORS Height: 5'10", Weight: 216 DIMENSIONS LVDd5.0 (3.8-5.7cm)LA (2D)4.7 (1.9-4.0cm)Aortic Root3.4 (2.0-3.7cm) LVDs3.2 (2.5-4.0cm)LA (MM) (1.9-4.0cm)Aortic Cusp Exc2.3 (1.5-2.0cm) EF (%) 65.0 (55-70%)Rt. Atrium (1.9-4.0cm)Asc. Aorta cm IVSd1.2 (0.7-1.1cm)RV (D) (1.8-2.4cm) PWd0.8 (0.7-1.1cm) Mitral Valve MitralMitral Stenosis E wave1.03m/sMV Mean GR.mmHg E/A ratio0.02D MVAcm2 Aortic Valve Aortic ValveAortic Stenosis LVOT Diameter2.1 (1.8-2.4cm)Doppler AVAcm2 Pulmonic Valve V21.22m/s Other Information Quality : Technically LimitedRhythm : Technically limited study due to pt sitting on edge of bed. Conclusion lvef > 50% by visual estimate pt has tachycardia and dysrhtymia noted durign study which decreases overall sensitivity RV enlarged biatrial enlargement mild moderate circumferential pericardial effusion, no HD compromise, consider chronic constrictive perica rditis on ddx no severe valve abnormalities noted
[2024-11-23] MEDS: HYDROcodone-ACET 5/325MG TAB PO PRN (17:37)
--- NOTE | 2024-11-23 18:40 | DVHPN2 ---
Reviewed: Care Plan, H&P, Labs, Medications, Previous Orders Changes from previous H/P or p: No Changes General: Per HPI Eyes: No Pain, No Vision change, No Conjunctivae inflammation, No Eyelid inflammation, No Other, No Redness ENT: No Ear pain, No Ear discharge, No Nose pain, No Nose discharge, No Nose congestion, No Mouth pain, No Mouth swelling, No Throat pain, No Throat swelling, No Other Cardiovascular: No Chest Pain, No Palpitations, No Orthopnea; Paroxysmal Noc. Dyspnea, Edema; No Lt Headedness, No Other Respiratory: Cough, Dry, Shortness of breath, SOB with excertion; No Wheezing, No Hemoptysis, No Pleuritic Pain, No Sputum, No Other Gastrointestinal: No Nausea, No Vomiting, No Abdominal Pain, No Diarrhea, No Constipation, No Melena, No Hematochezia, No Other Genitourinary: No Dysuria; Frequency; No Incontinence, No Hematuria, No Retention, No Other Musculoskeletal: No other, No neck pain, No shoulder pain, No arm pain, No back pain, No hand pain, No leg pain, No foot pain Skin: No Rash, No Lesions, No Jaundice, No Bruising, No Other Objective Vitals Vital Signs Date Time Temp Pulse Resp B/P (MAP) Pulse Ox O2 Delivery O2 Flow Rate FiO2 11/23/24 17:00 98.0 94 22 130/75 (93) 96 98.0 11/23/24 13:53 Nasal Cannula* 2 28 Intake/Output Intake and Output 11/23/24 06:59 Intake Total 410 ml Output Total 1250 ml Balance -840 ml Intake Oral 110 ml IV Total 300 ml Output Urine Total 1250 ml # Voids 2 Medications Current Medications Medications Dose Ordered Sig/Jamil Route Start Time Stop Time Status Last Admin Dose Admin Azithromycin 250 ml @ 125 mls/hr DAILY IV 11/23/24 10:00 11/23/24 09:40 125 MLS/HR Ceftriaxone Sodium 50 ml @ 100 mls/hr DAILY@09 IV 11/23/24 09:00 11/23/24 09:40 100 MLS/HR Ipratropium [place] 0.5 mg Q8HR NEB 11/22/24 22:00 11/23/24 13:53 0.5 MG Levalbuterol HCl 1.25 mg Q8HR NEB 11/22/24 22:00 11/23/24 13:53 1.25 MG Famotidine 20 mg Q12HR IV 11/22/24 22:00 11/23/24 09:39 20 MG Dobutamine HCl/ Dextrose 250 ml @ 14.76 mls/ hr [id number] IV 11/23/24 10:15 11/23/24 13:13 14.76 MLS/HR Furosemide 100 mg/ Sodium Chloride 110 ml @ 11 mls/hr Q10H IV 11/23/24 10:15 11/23/24 13:01 11 MLS/HR Ibuprofen 600 mg Q6HP PRN PO 11/23/24 11:30 Enoxaparin Sodium 40 mg DAILY SC 11/24/24 10:00 Acetaminophen/ Hydrocodone Bitart 1 tab Q6HPRN PRN PO 11/23/24 14:00 11/23/24 17:37 1 TAB Pregabalin 225 mg BID PO 11/23/24 22:00 Atorvastatin Calcium 40 mg HS PO 11/23/24 22:00 Baclofen 20 mg Q8HP PO 11/24/24 06:00 Laboratory Results Laboratory Tests 11/23/24 10:27 Chemistry Test 11/23/24 10:27 Calcium Level 10.0 mg/dL (8.7-10.4) Lipid panel Test 11/23/24 10:27 Cholesterol Level 99 mg/dL (< 200) HDL Cholesterol 24 mg/dL (40-59) L Triglycerides Level 90 mg/dL (< 150) Cardiac Markers Test 11/23/24 10:27 B-Type Natriuretic Peptide 308.37 pg/mL (0-100) HgA1c, TSH Test 11/23/24 10:27 Hemoglobin A1c 5.8 % A1C (<5.7) H Urinalysis Test 11/22/24 13:57 Urine Color Yellow (Yellow) Urine Clarity Clear (Clear) Urine pH 5.5 (5.0-9.0) Urine Specific [place] 1.017 (1.001-1.035) Urine Protein Trace (Negative) H Urine Ketones 1+ (Negative) H Urine Blood Negative /uL (Negative) Urine Nitrite Negative (Negative) Urine Bilirubin Negative (Negative) Urine Urobilinogen 3 mg/dL (Negative) H Urine Leukocyte Esterase Negative /uL (Negative) Urine RBC 1 /hpf (0 - 3) Urine WBC <1 /hpf (0 - 3) Urine Squamous Epithelial Cells Few /hpf (<5) Urine Bacteria None seen /hpf (None Seen) Urine Hyaline Casts Few /lpf (0 - 2) Urine Mucus Few (None Seen) Urine Glucose Normal mg/dL (Normal) Microbiology Microbiology Date/Time Source Procedure Growth Status 11/22/24 16:00 Blood Blood Culture - Preliminary NO GROWTH AFTER 24 HOURS OF INCUBATION. Resulted Assessment/Plan Assessment/Plan Patient is a 64-year-old male with past medical history of CHF, anemia, neuropathy, dyslipidemia, atrial fibrillation diagnosed 2 weeks ago?, who came in due to shortness of breath. According to the patient, he has been having worsening shortness of breath for a few weeks. He notes that he has shortness of breath even at rest along with orthopnea and paroxysmal nocturnal dyspnea. He also complains of a productive cough with whitish sputum. Per patient, he recently completed cardiac workup at [place] where he was told that the workup was unremarkable. On review of systems he is complaining of fatigue, shortness of breath, productive cough, dyspnea and urinary frequency. Chest x-ray showed left basilar opacities. CT angiography showed no pulmonary embolism, moderate pericardial effusion and trace left-sided pleural effusion. Acute hypoxic respiratory failure Pericardial effusion, moderate Acute on chronic CHF Atrial fibrillation with RVR; CHADS VASc 3 Ruled out pulmonary embolism Community-acquired pneumonia, Gram-positive versus Gram-negative Questionable sepsis due to above Anemia, chronic Peripheral neuropathy since undergoing laminectomy left lung pleural effusion fluid overload 11/23/2024: pulm to evaluate for pleural effusion Plan discussed with: Patient My Orders Orders - PRANAV CISNEROS DO Procedure Category Date Status Time Cardiac DIET 11/23/24 Transmitted Diet-2gna,Lofat,Lochol Dinner Enoxaparin Sodium PHA 11/24/24 In Process (Lovenox) 10:00 * Project Controls Scheduler CONS 11/23/24 Transmitted Consult Hydrocodone-Acet PHA 11/23/24 In Process 5/325mg Tab ([place] 14:00 Pregabalin Capsule PHA 11/23/24 In Process (Lyrica Capsule) 22:00 Baclofen Tablet PHA 11/23/24 In Process (Liorisal Tablet) 22:00 Atorvastatin (Lipitor) PHA 11/23/24 In Process 22:00 Baclofen Tablet PHA 11/24/24 In Process (Liorisal Tablet) 06:00 Imaging Transfer ORDERS 11/23/24 Transmitted Request 18:21 Discharge DISCHARGE 11/23/24 Transmitted 18:33 *Consult CONS 11/23/24 Transmitted / 18:37 Date of Service: Nov 23, 2024 Billing Provider: PRANAV CISNEROS DO Common Visit Codes: [id number] INP/OBS CARE(HIGH) PRANAV CISNEROS DO Nov 23, 2024 18:40
[2024-11-23] MEDS: PREGABALIN CAPSULE 75 MG CAP PO SCH (21:04)
[2024-11-23] MEDS: BACLOFEN 10 MG TAB PO ONE (21:05)
[2024-11-23] MEDS: ATORVASTATIN 20 MG TAB PO SCH (21:05)
--- NOTE | 2024-11-23 22:36 | DVHINCON2 ---
Date of service: Nov 23, 2024 Referring Physician Jose E Jaeger, Reason for Consultation Acute hypoxic respiratory failure, dyspnea on exertion, pneumonia and pleural effusion History of Present Illness A 64-year-old man with past medical history of CHF, anemia, neuropathy, dyslipidemia, and atrial fibrillation diagnosed 2 weeks ago?, who presented to ED on 11/22/24 with c/o shortness of breath. Patient reported worsening shortness of breath for a few weeks with SOB even at rest, along with orthopnea and paroxysmal nocturnal dyspnea. He also complained of a productive cough with whitish sputum. Pt recently completed cardiac workup at [place], was told that w orkup was unremarkable. Patient also c/o fatigue and urinary frequency. Chest x-ray showed left basilar opacities. CT angiography showed no pulmonary embolism, moderate pericardial effusion and trace left-sided pleural effusion. Patient was admitted for further care and pulmonary consultation is requested for evaluation and management due to the above findings. Review of Systems: 14-point review of systems negative unless otherwise noted above. Past Medical History: CHF, anemia, neuropathy, dyslipidemia, and atrial fibrillation diagnosed 2 weeks ago? Past Surgical History: Laminectomy Medications: Reviewed. Allergies: Duloxetine FD&C Blue #2 (Indigotine) Family History: No family history of premature CAD. No family history of lung disorders. Social History: Nonsmoker. Rare alcohol use. No illicit drug use. Family History: Patient reports no known family medical history. Allergies: Coded Allergies: Duloxetine (Verified Allergy, Unknown, 11/22/24) FD&C Blue #2 (Indigotine) (Verified Allergy, Unknown, 11/22/24) Home Meds Reported Medications Meloxicam (Meloxicam) 15 Mg Tab, 1 TAB PO DAILY, #30 TAB 2 Refills 11/23/24 Pregabalin (Lyrica) 75 Mg Cap, 225 MG PO BID, CAP 11/23/24 Ascorbic Acid (VITAMIN C TABLET) 500 Mg Tb, 1 TAB PO DAILY, #30 TAB 3 Refills 11/23/24 Omeprazole (Gnp Omeprazole) 20 Mg Tab, 1 TAB PO DAILY, #30 TAB 3 Refills 11/23/24 Ferrous Sulfate (Iron (Ferrous Sulfate)) 50 Mg Tab, 325 MG PO DAILY, TAB 11/23/24 Baclofen (Baclofen) 10 Mg Tab, 20 MG PO Q8HP for 30 Days, MG 11/23/24 Atorvastatin Calcium (ATORVASTATIN CALCIUM) 40 Mg Tab, 1 TAB PO DAILY, #30 TAB 5 Refills 11/23/24 Furosemide (Furosemide) 40 Mg Tab, 40 MG PO DAILY for 30 Days 11/23/24 Hydrocodone-Acetaminophen (Hydrocodone Bitartrate/AC 5-325 mg) 1 Tab Tab, 1 TAB PO QID, TAB 11/23/24 Current Medications Current Medications Medications (Trade) Dose Ordered Sig/Jamil Route PRN Reason Start Time Stop Time Status Last Admin Furosemide (Lasix Injection) 40 mg DAILY IV 11/23/24 10:00 11/23/24 10:04 DC 11/23/24 09:39 Azithromycin 250 ml @ 125 mls/hr DAILY IV 11/23/24 10:00 11/23/24 09:40 Ceftriaxone Sodium 50 ml @ 100 mls/hr DAILY@09 IV 11/23/24 09:00 11/23/24 09:40 Enoxaparin Sodium (Lovenox) 100 mg Q12HR SC 11/23/24 10:00 11/23/24 13:38 DC Dobutamine HCl/ Dextrose 250 ml @ 14.76 mls/ hr [id number] IV 11/23/24 10:15 11/23/24 13:13 Furosemide 100 mg/ Sodium Chloride 110 ml @ 11 mls/hr Q10H IV 11/23/24 10:15 11/23/24 13:01 Digoxin (Lanoxin Tablet) 0.125 mg DAILY PO 11/24/24 10:00 11/23/24 11:17 DC Ibuprofen (Motrin Tablet) 600 mg Q6HP PRN PO TEMP GREATER THAN 100.4 11/23/24 11:30 Enoxaparin Sodium (Lovenox) 40 mg DAILY SC 11/24/24 10:00 Acetaminophen/ Hydrocodone Bitart ([place]win 5/325MG Tab) 1 tab Q6HPRN PRN PO MODERATE PAIN (4-6 PAIN SCALE) 11/23/24 14:00 11/23/24 17:37 Pregabalin (Lyrica Capsule) 225 mg BID PO 11/23/24 22:00 11/23/24 21:04 Atorvastatin Calcium (Lipitor) 40 mg HS PO 11/23/24 22:00 11/23/24 21:05 Baclofen (Liorisal Tablet) 20 mg Q8HP PO 11/24/24 06:00 Vital Signs Vital Signs Date Time Temp Pulse Resp B/P (MAP) Pulse Ox O2 Delivery O2 Flow Rate FiO2 11/23/24 21:00 97.7 94 18 114/47 (69) 99 97.7 11/23/24 13:53 Nasal Cannula* 2 28 Physical Exam Gen.: Patient lying in bed in no apparent distress. On supplemental oxygen. Head: Normocephalic, atraumatic. Eyes: EOMI/PERRLA. Ears: Normal hearing. Normal anatomy. Neck/trachea: Trachea midline, supple. Nose: Normal external anatomy. Mouth: Moist mucous membranes. Chest: Decreased air entry bilaterally. No wheezing or rhonchi. Cardiovascular: Positive S1, positive S2. Regular rate and rhythm. Abdomen: Positive bowel sounds in all 4 quadrants. Soft, non-tender, non- distended. : Deferred. Rectal: Deferred. Skin: Warm, dry. Intact. Extremities: 2+ radial pulses bilaterally. No lower extremity edema. Neuro: Awake, alert, oriented x3. No gross motor or sensory deficits. Cranial nerves II through XII intact. Gait not assessed. Labs/Diagnostic Data Labs Test 11/23/24 10:27 11/22/24 17:59 11/22/24 16:31 11/22/24 16:00 Range/Units White Blood Count 10.5 # 4.4-10.8 10^3/uL Red Blood Count 4.27 L 4.5-5.90 10^6/uL Hemoglobin 10.1 L 13.5-17.5 g/dL Hematocrit 31.6 L 41.0-53.0 % Mean Corpuscular Volume 74.0 L 80.0-100.0 fL Mean Corpuscular Hemoglobin 23.7 L 28.0-32.0 pg Mean Corpuscular Hemoglobin Concent 32.0 32.0-36.0 g/dL Red Cell Distribution Width 18.6 H 11.8-14.3 % Platelet Count 446 140-450 10^3/uL Mean Platelet Volume 8.2 6.9-10.8 fL Neutrophils (%) (Auto) 77.1 37.0-80.0 % Lymphocytes (%) (Auto) 5.3 L 10.0-50.0 % Monocytes (%) (Auto) 17.1 H 0.0-12.0 % Eosinophils (%) (Auto) 0.3 0.0-7.0 % Basophils (%) (Auto) 0.2 0.0-2.0 % Neutrophils # (Auto) 8.1 1.6-8.6 10 ^3/uL Lymphocytes # (Auto) 0.6 0.4-5.4 10 ^3/uL Monocytes # (Auto) 1.8 H 0-1.3 10 ^3/uL Eosinophils # (Auto) 0 0-0.8 10 ^3/uL Basophils # (Auto) 0 0-0.2 10 ^3/uL Nucleated Red Blood Cells 0.0 % Sodium Level 140 136-145 mmol/L Potassium Level 3.7 3.5-5.1 mmol/L Chloride Level 101 98-107 mmol/L Carbon Dioxide Level 28 20-31 mmol/L Anion Gap 11 5-15 Blood Urea Nitrogen 21 9-23 mg/dL Creatinine 1.23 0.700-1.30 mg/dL Glomerular Filtration Rate Calc 65 >90 mL/min BUN/Creatinine Ratio 17.1 10.0-20.0 Serum Glucose 140 H 74-106 mg/dL Hemoglobin A1c 5.8 H <5.7 % A1C Calcium Level 10.0 8.7-10.4 mg/dL B-Type Natriuretic Peptide 308.37 0-100 pg/mL Triglycerides Level 90 < 150 mg/dL Cholesterol Level 99 < 200 mg/dL LDL Cholesterol 53 < 100 mg/dL HDL Cholesterol 24 L 40-59 mg/dL Troponin I High Sensitivity 13 </=54 ng/L Thyroid Stimulating Hormone (TSH) 1.12 0.55-4.78 uIU/mL Blood Gas Specimen Type Arterial Blood Gas Sample Site Left radial Blood Gas Patient Temperature 37.0 Arterial Blood Date Drawn [id number] Arterial Blood pH 7.456 H 7.350-7.450 Arterial Blood Partial Pressure CO2 38.1 35.0-48.0 mmHg Arterial Blood Partial Pressure O2 81.4 L 83.0-108.0 mmHg Arterial Blood HCO3 26.2 21.0-28.0 mmol/L Arterial Blood Oxygen Saturation 95.5 94.0-98.0 % Arterial Blood Base Excess 2.3 -2.0-3.0 mmol/L Arterial Blood Oxyhemoglobin 94.4 94.0-98.0 % Arterial Blood Carboxyhemoglobin 0.4 L 0.5-1.5 % Arterial Blood Methemoglobin 0.8 0.0-1.5 % Anibal Test Yes Blood Gas Total Hemoglobin 10.90 L 13.5-17.5 g/dL Blood Gas Liter Flow 2.50 Blood Gas Modality Nasal cannula FiO2 % 30.0 Lactic Acid Level 1.2 0.4-2.0 mmol/L Test 11/22/24 14:01 11/22/24 13:57 11/22/24 13:41 Range/Units Influenza Type A Antigen Negative Negative Influenza Type B Antigen Negative Negative SARS-CoV-2 Antigen (Rapid) Negative NEGATIVE Urine Color Yellow Yellow Urine Clarity Clear Clear Urine pH 5.5 5.0-9.0 Urine Specific [place] 1.017 1.001-1.035 Urine Protein Trace H Negative Urine Ketones 1+ H Negative Urine Blood Negative Negative /uL Urine Nitrite Negative Negative Urine Bilirubin Negative Negative Urine Urobilinogen 3 H Negative mg/dL Urine Leukocyte Esterase Negative Negative /uL Urine RBC 1 0 - 3 /hpf Urine WBC <1 0 - 3 /hpf Urine Squamous Epithelial Cells Few <5 /hpf Urine Bacteria None seen None Seen /hpf Urine Hyaline Casts Few 0 - 2 /lpf Urine Mucus Few None Seen Urine Glucose Normal Normal mg/dL D-Dimer, Quantitative 7.31 H 0.0-0.49 mg/L FEU Magnesium Level 2.0 1.6-2.6 mg/dL Microbiology Date/Time Source Procedure Growth Status 11/22/24 16:00 Blood Blood Culture - Preliminary NO GROWTH AFTER 24 HOURS OF INCUBATION. Resulted Assessment Impression: Acute hypoxic respiratory failure Dependence on supplemental oxygen Dyspnea on exertion Acute Congestive heart failure exacerbation, EF 50% Atrial fibrillation Pneumonia, likely gram negative Pleural effusion, left Atelectasis Elevated D-dimer, ruled out PE/DVT Pericardial effusion. Obesity BMI 31.1 Plan: Supplemental oxygen 2 LPM NC Titrate to keep O2 sats above 92%. Taper O2 as tolerated. On dobutamine drip for inotropic support Continue antibiotics Incentive spirometry Cardiology recs appreciated. Diurese to euvolemia w/ Lasix drip Monitor renal function. Monitor electrolytes. Supplement as necessary. Monitor ins and outs. Diet and lifestyle modifications for weight reduction Obesity - complicates all care DVT prophylaxis. Prognosis: Poor given patient's multiple co-morbidities. Rest of plan per hospitalist and other consultants. Thank you, Dr. Jaeger, for allowing me to participate in this patient's care. Further recommendations will depend on the patient's clinical course. Please do not hesitate to contact me if you have any questions or concerns. This medical document was created using an electronic medical record system with [employer] dictation system. Although these documentations are being carefully reviewed, there may still be some phonetic and typographical changes. The errors are purely typographical, due to imperfection on the software Patterns, and do not reflect any compromise in the patient's medical care. Plan discussed with: Patient, Other (NAHOMI Sofia/Dr. Jaeger) REYNA WEBSTER MD Nov 23, 2024 22:36
[2024-11-24] VITALS (16 sets, daily range): BP systolic 123–154; BP diastolic 45–72; PULSE 56–133; RESP 16–21; TEMP 97.6–98.9; O2SAT 95–100
[2024-11-24] MEDS: BACLOFEN 10 MG TAB PO SCH (07:01)
[2024-11-24] MEDS ORDERED: DIGOXIN 0.125 MG TAB PO SCH (10:00)
[2024-11-24] MEDS: IBUPROFEN 600 MG TAB PO PRN (10:19)
[2024-11-24] MEDS: ENOXAPARIN SOD 40 MG/0.4 ML SYRINGE SC SCH (10:22)
[2024-11-24 10:26] LABS: White Blood Cell 6.5 10^3/uL (4.4-10.8)
[2024-11-24 10:29] LABS: Alanine Aminotransferase 33 U/L (7-40); Albumin 4.2 g/dL (3.2-4.8); Anion Gap 11 (5-15); BUN/Creatinine Ratio 18.7 (10.0-20.0); Calcium 9.5 mg/dL (8.7-10.4); Carbon Dioxide 28 mmol/L (20-31); Chloride 99 mmol/L (98-107); Hematocrit 28.2 % (41.0-53.0); Hemoglobin 9.2 g/dL (13.5-17.5); Mean Corpuscular Hemoglobin 23.7 pg (28.0-32.0); Mean Corpuscular Hgb Conc. 32.5 g/dL (32.0-36.0); Mean Corpuscular Volume 72.9 fL (80.0-100.0); Platelet Count (auto) 400 10^3/uL (140-450); Red Blood Cells 3.87 10^6/uL (4.5-5.90); Red Cell Distribution Width 18.6 % (11.8-14.3); Sodium 138 mmol/L (136-145); Total Protein 7.3 g/dL (5.7-8.2)
[2024-11-24 10:32] LABS: Alkaline Phosphatase 124 U/L (46-116); Aspartate Aminotransferase 46 U/L (13-40); Blood Urea Nitrogen 31 mg/dL (9-23); Glucose 183 mg/dL (74-106); Potassium 3.4 mmol/L (3.5-5.1)
[2024-11-24 10:33] LABS: Band Neutrophils % (manual) 0; Basophils % (manual) 0 (0.0-2.0); Blast Cells 0; Eosinophils % (manual) 0 (0-7); Metamyelocytes % 0; Myelocytes % 0; Promyelocytes % 0; Reactive Lymphocytes 0
[2024-11-24 11:00] LABS: Lymphocytes % (manual) 12 (10.0-50.0); Monocytes % (manual) 13 (0-12)
[2024-11-24 11:01] LABS: Hypochromia Slight; Platelet Estimate Adequate
--- NOTE | 2024-11-24 13:25 | DVHPN2 ---
Progress Note Date Seen: Nov 24, 2024 Medical Necessity Reason Pt with a Central, PICC or Fol: No Subjective Patient reports: Feels worse Other Systems: diursed poorly HR elevated pt sleepy Objective vital signs Vital Sign Date Time Temp Pulse Resp B/P (MAP) Pulse Ox O2 Delivery O2 Flow Rate FiO2 11/24/24 07:56 80 20 97 11/24/24 07:51 Nasal Cannula* 3 32 11/24/24 07:03 136/71 11/24/24 05:00 98.9 98.9 Total Intake and Output 11/23/24 11/23/24 11/24/24 14:59 22:59 06:59 Intake Total 300 ml 493.8 ml 40 ml Output Total 490 ml Balance 300 ml 493.8 ml -450 ml medications Current Medications Medications Dose Ordered Sig/Jamil Route Start Time Stop Time Status Last Admin Dose Admin Azithromycin 250 ml @ 125 mls/hr DAILY IV 11/23/24 10:00 11/24/24 10:00 125 MLS/HR Ceftriaxone Sodium 50 ml @ 100 mls/hr DAILY@09 IV 11/23/24 09:00 11/24/24 10:18 100 MLS/HR Ipratropium [place] 0.5 mg Q8HR NEB 11/22/24 22:00 11/24/24 07:49 0.5 MG Levalbuterol HCl 1.25 mg Q8HR NEB 11/22/24 22:00 11/24/24 07:49 1.25 MG Famotidine 20 mg Q12HR IV 11/22/24 22:00 11/24/24 10:18 20 MG Dobutamine HCl/ Dextrose 250 ml @ 14.76 mls/ hr [id number] IV 11/23/24 10:15 11/24/24 07:02 14.76 MLS/HR Furosemide 100 mg/ Sodium Chloride 110 ml @ 11 mls/hr Q10H IV 11/23/24 10:15 11/24/24 07:03 11 MLS/HR Ibuprofen 600 mg Q6HP PRN PO 11/23/24 11:30 11/24/24 10:19 600 MG Enoxaparin Sodium 40 mg DAILY SC 11/24/24 10:00 11/24/24 10:22 40 MG Acetaminophen/ Hydrocodone Bitart 1 tab Q6HPRN PRN PO 11/23/24 14:00 11/24/24 07:02 1 TAB Pregabalin 225 mg BID PO 11/23/24 22:00 11/24/24 10:18 225 MG Atorvastatin Calcium 40 mg HS PO 11/23/24 22:00 11/23/24 21:05 40 MG Baclofen 20 mg Q8HP PO 11/24/24 06:00 11/24/24 07:01 20 MG Examination: GENERAL:Abnormal, HEENT:Abnormal, LUNGS:Abnormal, CVS:Abnormal, ABDOMEN:Abnormal laboratory and microbiology Laboratory Tests 11/24/24 09:26 Test 11/24/24 09:26 Range/Units Serum Glucose 183 H 74-106 mg/dL Microbiology Date/Time Source Procedure Growth Status 11/22/24 16:00 Blood Blood Culture - Preliminary NO GROWTH AFTER 24 HOURS OF INCUBATION. Resulted Problem List/Assessment/Plan Problem List/Assessment/Plan diastolci HF afib rvr chronic edema obesity ckd dc dobutamine, LVEF is preserved dc lasix gtt, creat is worse and bnp is marginal elevated creatinine likely will worsen, consider renal consult cont diuretics cont HF meds and therapy --BB, Plan discussed with: Patient Date of Service: Nov 24, 2024 Billing Provider: ANNIKA CHERY MD Common Visit Codes: NOT BILLABLE ANNIKA CHERY MD Nov 24, 2024 13:25
--- NOTE | 2024-11-24 21:01 | DVHPN2 ---
Reviewed: Care Plan, H&P, Labs, Medications, Previous Orders Changes from previous H/P or p: No Changes General: Per HPI Eyes: No Pain, No Vision change, No Conjunctivae inflammation, No Eyelid inflammation, No Other, No Redness ENT: No Ear pain, No Ear discharge, No Nose pain, No Nose discharge, No Nose congestion, No Mouth pain, No Mouth swelling, No Throat pain, No Throat swelling, No Other Cardiovascular: No Chest Pain, No Palpitations, No Orthopnea; Paroxysmal Noc. Dyspnea, Edema; No Lt Headedness, No Other Respiratory: Cough, Dry, Shortness of breath, SOB with excertion; No Wheezing, No Hemoptysis, No Pleuritic Pain, No Sputum, No Other Gastrointestinal: No Nausea, No Vomiting, No Abdominal Pain, No Diarrhea, No Constipation, No Melena, No Hematochezia, No Other Genitourinary: No Dysuria; Frequency; No Incontinence, No Hematuria, No Retention, No Other Musculoskeletal: No other, No neck pain, No shoulder pain, No arm pain, No back pain, No hand pain, No leg pain, No foot pain Skin: No Rash, No Lesions, No Jaundice, No Bruising, No Other Objective Vitals Vital Signs Date Time Temp Pulse Resp B/P (MAP) Pulse Ox O2 Delivery O2 Flow Rate FiO2 11/24/24 16:47 97.9 60 16 154/58 (90) 95 97.9 11/24/24 08:00 Nasal Cannula* 2 28 Intake/Output Intake and Output 11/24/24 07:00 Intake Total 833.8 ml Output Total 490 ml Balance 343.8 ml Intake Oral 350 ml IV Total 483.8 ml Output Urine Total 490 ml # Voids 5 Medications Current Medications Medications Dose Ordered Sig/Jamil Route Start Time Stop Time Status Last Admin Dose Admin Azithromycin 250 ml @ 125 mls/hr DAILY IV 11/23/24 10:00 11/24/24 10:00 125 MLS/HR Ceftriaxone Sodium 50 ml @ 100 mls/hr DAILY@09 IV 11/23/24 09:00 11/24/24 10:18 100 MLS/HR Ipratropium [place] 0.5 mg Q8HR NEB 11/22/24 22:00 11/24/24 18:57 0.5 MG Levalbuterol HCl 1.25 mg Q8HR NEB 11/22/24 22:00 11/24/24 18:57 1.25 MG Famotidine 20 mg Q12HR IV 11/22/24 22:00 11/24/24 10:18 20 MG Ibuprofen 600 mg Q6HP PRN PO 11/23/24 11:30 11/24/24 10:19 600 MG Enoxaparin Sodium 40 mg DAILY SC 11/24/24 10:00 11/24/24 10:22 40 MG Acetaminophen/ Hydrocodone Bitart 1 tab Q6HPRN PRN PO 11/23/24 14:00 11/24/24 07:02 1 TAB Pregabalin 225 mg BID PO 11/23/24 22:00 11/24/24 10:18 225 MG Atorvastatin Calcium 40 mg HS PO 11/23/24 22:00 11/23/24 21:05 40 MG Baclofen 20 mg Q8HP PO 11/24/24 06:00 11/24/24 14:00 20 MG Potassium Chloride 40 meq DAILY PO 11/25/24 10:00 Laboratory Results Laboratory Tests 11/24/24 09:26 Chemistry Test 11/24/24 09:26 Albumin 4.2 g/dL (3.2-4.8) Calcium Level 9.5 mg/dL (8.7-10.4) Total Protein 7.3 g/dL (5.7-8.2) Cardiac Markers Test 11/24/24 09:26 B-Type Natriuretic Peptide 167.01 pg/mL (0-100) LFT Test 11/24/24 09:26 Alanine Aminotransferase (ALT) 33 U/L (7-40) Alkaline Phosphatase 124 U/L (46-116) H Aspartate Amino Transferase (AST) 46 U/L (13-40) H Total Bilirubin 1.0 mg/dL (0.2-1.0) Urinalysis Test 11/22/24 13:57 Urine Color Yellow (Yellow) Urine Clarity Clear (Clear) Urine pH 5.5 (5.0-9.0) Urine Specific [place] 1.017 (1.001-1.035) Urine Protein Trace (Negative) H Urine Ketones 1+ (Negative) H Urine Blood Negative /uL (Negative) Urine Nitrite Negative (Negative) Urine Bilirubin Negative (Negative) Urine Urobilinogen 3 mg/dL (Negative) H Urine Leukocyte Esterase Negative /uL (Negative) Urine RBC 1 /hpf (0 - 3) Urine WBC <1 /hpf (0 - 3) Urine Squamous Epithelial Cells Few /hpf (<5) Urine Bacteria None seen /hpf (None Seen) Urine Hyaline Casts Few /lpf (0 - 2) Urine Mucus Few (None Seen) Urine Glucose Normal mg/dL (Normal) Microbiology Microbiology Date/Time Source Procedure Growth Status 11/22/24 16:00 Blood Blood Culture - Preliminary NO GROWTH AFTER 48 HOURS OF INCUBATION. Resulted Assessment/Plan Assessment/Plan Patient is a 64-year-old male with past medical history of CHF, anemia, neuropathy, dyslipidemia, atrial fibrillation diagnosed 2 weeks ago?, who came in due to shortness of breath. According to the patient, he has been having worsening shortness of breath for a few weeks. He notes that he has shortness of breath even at rest along with orthopnea and paroxysmal nocturnal dyspnea. He also complains of a productive cough with whitish sputum. Per patient, he recently completed cardiac workup at [place] where he was told that the workup was unremarkable. On review of systems he is complaining of fatigue, shortness of breath, productive cough, dyspnea and urinary frequency. Chest x-ray showed left basilar opacities. CT angiography showed no pulmonary embolism, moderate pericardial effusion and trace left-sided pleural effusion. Acute hypoxic respiratory failure Pericardial effusion, moderate Acute on chronic CHF Atrial fibrillation with RVR; CHADS VASc 3 Ruled out pulmonary embolism Community-acquired pneumonia, Gram-positive versus Gram-negative Questionable sepsis due to above Anemia, chronic Peripheral neuropathy since undergoing laminectomy left lung pleural effusion fluid overload 11/23/2024: pulm to evaluate for pleural effusion 11/24/2024: -- cardio/pulm managing along -- continue with diuresis Plan discussed with: Patient Date of Service: Nov 24, 2024 Billing Provider: PRANAV CISNEROS DO Common Visit Codes: [id number] INP/OBS CARE(HIGH) PRANAV CISNEROS DO Nov 24, 2024 21:01
--- NOTE | 2024-11-24 21:16 | DVHPN2 ---
Progress Note - Dictate Date Seen: Nov 24, 2024 Medical Necessity Reason Pt with a Central, PICC or Fol: No Subjective Patient seen and examined at bedside. Remains on supplemental oxygen Overnight events reviewed. vital signs Vital Sign Date Time Temp Pulse Resp B/P (MAP) Pulse Ox O2 Delivery O2 Flow Rate FiO2 11/24/24 16:47 97.9 60 16 154/58 (90) 95 97.9 11/24/24 08:00 Nasal Cannula* 2 28 Total Intake and Output 11/23/24 11/23/24 11/24/24 15:00 23:00 07:00 Intake Total 300 ml 493.8 ml 40 ml Output Total 490 ml Balance 300 ml 493.8 ml -450 ml medications Current Medications Medications Dose Ordered Sig/Jamil Route Start Time Stop Time Status Last Admin Dose Admin Azithromycin 250 ml @ 125 mls/hr DAILY IV 11/23/24 10:00 11/24/24 10:00 125 MLS/HR Ceftriaxone Sodium 50 ml @ 100 mls/hr DAILY@09 IV 11/23/24 09:00 11/24/24 10:18 100 MLS/HR Ipratropium [place] 0.5 mg Q8HR NEB 11/22/24 22:00 11/24/24 18:57 0.5 MG Levalbuterol HCl 1.25 mg Q8HR NEB 11/22/24 22:00 11/24/24 18:57 1.25 MG Famotidine 20 mg Q12HR IV 11/22/24 22:00 11/24/24 10:18 20 MG Ibuprofen 600 mg Q6HP PRN PO 11/23/24 11:30 11/24/24 10:19 600 MG Enoxaparin Sodium 40 mg DAILY SC 11/24/24 10:00 11/24/24 10:22 40 MG Acetaminophen/ Hydrocodone Bitart 1 tab Q6HPRN PRN PO 11/23/24 14:00 11/24/24 07:02 1 TAB Pregabalin 225 mg BID PO 11/23/24 22:00 11/24/24 10:18 225 MG Atorvastatin Calcium 40 mg HS PO 11/23/24 22:00 11/23/24 21:05 40 MG Baclofen 20 mg Q8HP PO 11/24/24 06:00 11/24/24 14:00 20 MG Potassium Chloride 40 meq DAILY PO 11/25/24 10:00 objective Gen.: Patient lying in bed in no apparent distress. On supplemental oxygen. Head: Normocephalic, atraumatic. Eyes: EOMI/PERRLA. Ears: Normal hearing. Normal anatomy. Neck/trachea: Trachea midline, supple. Nose: Normal external anatomy. Mouth: Moist mucous membranes. Chest: Decreased air entry bilaterally. No wheezing or rhonchi. Cardiovascular: Positive S1, positive S2. Regular rate and rhythm. Abdomen: Positive bowel sounds in all 4 quadrants. Soft, non-tender, non- distended. : Deferred. Rectal: Deferred. Skin: Warm, dry. Intact. Extremities: 2+ radial pulses bilaterally. No lower extremity edema. Neuro: Awake, alert, oriented x3. No gross motor or sensory deficits. Cranial nerves II through XII intact. Gait not assessed. laboratory and microbiology Laboratory Tests 11/24/24 09:26 Test 11/24/24 09:26 Range/Units Serum Glucose 183 H 74-106 mg/dL Assessment/Plan Impression: Acute hypoxic respiratory failure Dependence on supplemental oxygen Dyspnea on exertion Acute Congestive heart failure exacerbation, EF 50% Atrial fibrillation Pneumonia, likely gram negative Pleural effusion, left Atelectasis Elevated D-dimer, ruled out PE/DVT Pericardial effusion. Obesity BMI 31.1 Events: Remains on supplemental oxygen, 3 LPM NC Taper O2 as tolerated Continue dobutamine drip for inotropic support D/C per Cardiology Cardiology recs appreciated. Continue bronchodilators Continue antibiotics Incentive spirometry Lasix drip for diuresis Monitor renal function. Monitor electrolytes. Supplement as necessary. Potassium supplementation Check mag in AM. Monitor ins and outs - not adherent w/ ins and outs. Awaiting transfer to [place]. Labs and imaging reviewed. Rest of plan as noted below. Plan: Supplemental oxygen Titrate to keep O2 sats above 92%. On dobutamine drip for inotropic support Continue antibiotics Incentive spirometry Cardiology recs appreciated. Diurese to euvolemia w/ Lasix drip Monitor renal function. Monitor electrolytes. Supplement as necessary. Monitor ins and outs. Diet and lifestyle modifications for weight reduction Obesity - complicates all care DVT prophylaxis. Prognosis: Poor given patient's multiple co-morbidities. Rest of plan per hospitalist and other consultants. Thank you, Dr. Jaeger, for allowing me to participate in this patient's care. Further recommendations will depend on the patient's clinical course. Please do not hesitate to contact me if you have any questions or concerns. This medical document was created using an electronic medical record system with [employer] dictation system. Although these documentations are being carefully reviewed, there may still be some phonetic and typographical changes. The errors are purely typographical, due to imperfection on the software program, and do not reflect any compromise in the patient's medical care. Plan discussed with: Patient, Other (NAHOMI Coats) REYNA WEBSTER MD Nov 24, 2024 21:16
[2024-11-24] MEDS ORDERED: LEVALBUTEROL HCL 1.25 MG/3 ML NEB NEB SCH (22:30)
[2024-11-24] MEDS: LEVALBUTEROL HCL 1.25 MG/3 ML NEB NEB PRN (23:39)
[2024-11-24] MEDS: IPRATROPIUM BROM 0.5 MG/2.5ML INH SOL NEB PRN (23:39)
[2024-11-25] VITALS (12 sets, daily range): BP systolic 111–155; BP diastolic 48–65; PULSE 60–92; RESP 16–24; TEMP 97.7–99.1; O2SAT 91–98
[2024-11-25] MEDS: methylPREDNISolone SOD SUCC 40 MG/ML VL IV ONE (00:04)
[2024-11-25] MEDS: methylPREDNISolone SOD SUCC 40 MG/ML VL ONE (00:27)
[2024-11-25] MEDS: methylPREDNISolone SOD SUCC 40 MG/ML VL IV SCH (05:46)
[2024-11-25] MEDS: POTASSIUM CHL 20 Meq TABLET PO SCH (10:17)
--- NOTE | 2024-11-25 11:39 | DVHPN2 ---
Progress Note Date Seen: Nov 25, 2024 Medical Necessity Reason Pt with a Central, PICC or Fol: No Subjective Other Systems: sleeping lethargic HR low 100s Objective vital signs Vital Sign Date Time Temp Pulse Resp B/P (MAP) Pulse Ox O2 Delivery O2 Flow Rate FiO2 11/25/24 09:38 73 18 97 11/25/24 09:32 Nasal Cannula* 3 32 11/25/24 09:00 98.6 155/62 (93) 98.6 Total Intake and Output 11/24/24 11/24/24 11/25/24 15:00 23:00 07:00 Intake Total 532.2 ml 50 ml 240 ml Output Total 1300 ml Balance 532.2 ml 50 ml -1060 ml medications Current Medications Medications Dose Ordered Sig/Jamil Route Start Time Stop Time Status Last Admin Dose Admin Azithromycin 250 ml @ 125 mls/hr DAILY IV 11/23/24 10:00 11/25/24 10:20 125 MLS/HR Ceftriaxone Sodium 50 ml @ 100 mls/hr DAILY@09 IV 11/23/24 09:00 11/25/24 09:52 100 MLS/HR Famotidine 20 mg Q12HR IV 11/22/24 22:00 11/25/24 09:52 20 MG Ibuprofen 600 mg Q6HP PRN PO 11/23/24 11:30 11/25/24 10:28 600 MG Enoxaparin Sodium 40 mg DAILY SC 11/24/24 10:00 11/25/24 09:53 40 MG Acetaminophen/ Hydrocodone Bitart 1 tab Q6HPRN PRN PO 11/23/24 14:00 11/25/24 00:04 1 TAB Pregabalin 225 mg BID PO 11/23/24 22:00 11/25/24 10:18 225 MG Atorvastatin Calcium 40 mg HS PO 11/23/24 22:00 11/24/24 21:50 40 MG Baclofen 20 mg Q8HP PO 11/24/24 06:00 11/25/24 05:46 20 MG Potassium Chloride 40 meq DAILY PO 11/25/24 10:00 11/25/24 10:17 40 MEQ Ipratropium [place] 0.5 mg Q4HPRN PRN NEB 11/24/24 22:30 11/25/24 09:31 0.5 MG Levalbuterol HCl 1.25 mg Q4HPRN PRN NEB 11/24/24 23:30 11/25/24 09:32 1.25 MG Methylprednisolone Sodium Succinate 40 mg Q8HR IV 11/25/24 06:00 11/25/24 05:46 40 MG Examination: GENERAL:Abnormal, HEENT:Abnormal, LUNGS:Abnormal, CVS:Abnormal, ABDOMEN:Abnormal laboratory and microbiology Laboratory Tests 11/24/24 09:26 Test 11/24/24 09:26 Range/Units Serum Glucose 183 H 74-106 mg/dL Microbiology Date/Time Source Procedure Growth Status 11/22/24 16:00 Blood Blood Culture - Preliminary NO GROWTH AFTER 48 HOURS OF INCUBATION. Resulted Problem List/Assessment/Plan Problem List/Assessment/Plan diastolci HF afib rvr chronic edema obesity ckd dc dobutamine, LVEF is preserved dc lasix gtt, creat is worse and bnp is marginal elevated cont HF meds and therapy --BB, start coreg and po amiodarone per RN, possible tx to [place] start pt on OAC when feasible--typicall pradaxa given [place] low dose diuretics and aldactone on DC Plan discussed with: Patient Date of Service: Nov 25, 2024 Billing Provider: ANNIKA CHERY MD Common Visit Codes: NOT BILLABLE ANNIKA CHERY MD Nov 25, 2024 11:39
[2024-11-25] MEDS: AMIODARONE HCL 200 MG TAB PO SCH (12:59)
[2024-11-25] MEDS: CARVEDILOL 3.125 MG TAB PO SCH (13:00)
[2024-11-25] MEDS: metOLazone 5 MG TAB PO ONE (16:16)
--- NOTE | 2024-11-25 20:42 | DVHPN2 ---
Reviewed: Care Plan, H&P, Labs, Medications, Previous Orders Changes from previous H/P or p: No Changes General: Per HPI Eyes: No Pain, No Vision change, No Conjunctivae inflammation, No Eyelid inflammation, No Other, No Redness ENT: No Ear pain, No Ear discharge, No Nose pain, No Nose discharge, No Nose congestion, No Mouth pain, No Mouth swelling, No Throat pain, No Throat swelling, No Other Cardiovascular: No Chest Pain, No Palpitations, No Orthopnea; Paroxysmal Noc. Dyspnea, Edema; No Lt Headedness, No Other Respiratory: Cough, Dry, Shortness of breath, SOB with excertion; No Wheezing, No Hemoptysis, No Pleuritic Pain, No Sputum, No Other Gastrointestinal: No Nausea, No Vomiting, No Abdominal Pain, No Diarrhea, No Constipation, No Melena, No Hematochezia, No Other Genitourinary: No Dysuria; Frequency; No Incontinence, No Hematuria, No Retention, No Other Musculoskeletal: No other, No neck pain, No shoulder pain, No arm pain, No back pain, No hand pain, No leg pain, No foot pain Skin: No Rash, No Lesions, No Jaundice, No Bruising, No Other Objective Vitals Vital Signs Date Time Temp Pulse Resp B/P (MAP) Pulse Ox O2 Delivery O2 Flow Rate FiO2 11/25/24 17:07 98.1 68 16 153/48 (83) 91 98.1 11/25/24 09:32 Nasal Cannula* 3 32 Intake/Output Intake and Output 11/25/24 07:00 Intake Total 822.2 ml Output Total 1300 ml Balance -477.8 ml Intake Oral 240 ml IV Total 582.2 ml Output Urine Total 1300 ml # Voids 2 Medications Current Medications Medications Dose Ordered Sig/Jamil Route Start Time Stop Time Status Last Admin Dose Admin Azithromycin 250 ml @ 125 mls/hr DAILY IV 11/23/24 10:00 11/25/24 10:20 125 MLS/HR Ceftriaxone Sodium 50 ml @ 100 mls/hr DAILY@09 IV 11/23/24 09:00 11/25/24 09:52 100 MLS/HR Famotidine 20 mg Q12HR IV 11/22/24 22:00 11/25/24 09:52 20 MG Ibuprofen 600 mg Q6HP PRN PO 11/23/24 11:30 11/25/24 10:28 600 MG Acetaminophen/ Hydrocodone Bitart 1 tab Q6HPRN PRN PO 11/23/24 14:00 11/25/24 00:04 1 TAB Pregabalin 225 mg BID PO 11/23/24 22:00 11/25/24 10:18 225 MG Atorvastatin Calcium 40 mg HS PO 11/23/24 22:00 11/24/24 21:50 40 MG Baclofen 20 mg Q8HP PO 11/24/24 06:00 11/25/24 14:17 20 MG Potassium Chloride 40 meq DAILY PO 11/25/24 10:00 11/25/24 10:17 40 MEQ Ipratropium [place] 0.5 mg Q4HPRN PRN NEB 11/24/24 22:30 11/25/24 09:31 0.5 MG Levalbuterol HCl 1.25 mg Q4HPRN PRN NEB 11/24/24 23:30 11/25/24 09:32 1.25 MG Methylprednisolone Sodium Succinate 40 mg Q8HR IV 11/25/24 06:00 11/25/24 14:17 40 MG Carvedilol 6.25 mg Q12HR PO 11/25/24 11:45 11/25/24 13:00 6.25 MG Amiodarone HCl 200 mg Q12HR PO 11/25/24 11:45 11/25/24 12:59 200 MG Dabigatran 150 mg BID PO 11/25/24 22:00 Laboratory Results Laboratory Tests 11/24/24 09:26 Chemistry Test 11/25/24 05:40 Magnesium Level 2.3 mg/dL (1.6-2.6) Urinalysis Test 11/22/24 13:57 Urine Color Yellow (Yellow) Urine Clarity Clear (Clear) Urine pH 5.5 (5.0-9.0) Urine Specific [place] 1.017 (1.001-1.035) Urine Protein Trace (Negative) H Urine Ketones 1+ (Negative) H Urine Blood Negative /uL (Negative) Urine Nitrite Negative (Negative) Urine Bilirubin Negative (Negative) Urine Urobilinogen 3 mg/dL (Negative) H Urine Leukocyte Esterase Negative /uL (Negative) Urine RBC 1 /hpf (0 - 3) Urine WBC <1 /hpf (0 - 3) Urine Squamous Epithelial Cells Few /hpf (<5) Urine Bacteria None seen /hpf (None Seen) Urine Hyaline Casts Few /lpf (0 - 2) Urine Mucus Few (None Seen) Urine Glucose Normal mg/dL (Normal) Microbiology Microbiology Date/Time Source Procedure Growth Status 11/22/24 16:00 Blood Blood Culture - Preliminary NO GROWTH AFTER 72 HOURS OF INCUBATION. Resulted Assessment/Plan Assessment/Plan Patient is a 64-year-old male with past medical history of CHF, anemia, neuropathy, dyslipidemia, atrial fibrillation diagnosed 2 weeks ago?, who came in due to shortness of breath. According to the patient, he has been having worsening shortness of breath for a few weeks. He notes that he has shortness of breath even at rest along with orthopnea and paroxysmal nocturnal dyspnea. He also complains of a productive cough with whitish sputum. Per patient, he recently completed cardiac workup at [facility] where he was told that the workup was unremarkable. On review of systems he is complaining of fatigue, shortness of breath, productive cough, dyspnea and urinary frequency. Chest x-ray showed left basilar opacities. CT angiography showed no pulmonary embolism, moderate pericardial effusion and trace left-sided pleural effusion. Acute hypoxic respiratory failure Pericardial effusion, moderate Acute on chronic CHF Atrial fibrillation with RVR; CHADS VASc 3 Ruled out pulmonary embolism Community-acquired pneumonia, Gram-positive versus Gram-negative Questionable sepsis due to above Anemia, chronic Peripheral neuropathy since undergoing laminectomy left lung pleural effusion fluid overload 11/23/2024: pulm to evaluate for pleural effusion 11/24/2024: -- cardio/pulm managing along -- continue with diuresis 11/25/2024: continue with current care. pulm/card to make recommendations Plan discussed with: Patient My Orders Orders - PRANAV CISNEROS DO Procedure Category Date Status Time Electrocardigram EKG 11/25/24 Logged 13:38 Electrocardigram EKG 11/25/24 Logged 14:38 Electrocardigram EKG 11/25/24 Logged 16:38 Electrocardigram EKG 11/25/24 Logged 14:40 Electrocardigram EKG 11/25/24 Logged 14:40 Electrocardigram EKG 11/25/24 Logged 14:40 * Grain Oilseed Or Pasture Grower CONS 11/25/24 Verified Consult Date of Service: Nov 25, 2024 Billing Provider: PRANAV CISNEROS DO Common Visit Codes: [id number] INP/OBS CARE(HIGH) PRANAV CISNEROS DO Nov 25, 2024 20:42
[2024-11-25] MEDS: DABIGATRAN 75 MG CAP PO SCH (21:41)
[2024-11-25] MEDS: MELATONIN 5 MG TAB PO ONE (22:00)
[2024-11-25] MEDS: MELATONIN 5 MG TAB ONE (22:43)
--- NOTE | 2024-11-25 23:28 | DVHPN2 ---
Progress Note - Dictate Date Seen: Nov 25, 2024 Medical Necessity Reason Pt with a Central, PICC or Fol: No Subjective Patient seen and examined at bedside. Remains on supplemental oxygen Overnight events reviewed. vital signs Vital Sign Date Time Temp Pulse Resp B/P (MAP) Pulse Ox O2 Delivery O2 Flow Rate FiO2 11/25/24 22:41 90 18 98 11/25/24 21:42 135/65 11/25/24 17:07 98.1 98.1 11/25/24 09:32 Nasal Cannula* 3 32 Total Intake and Output 11/24/24 11/24/24 11/25/24 14:59 22:59 06:59 Intake Total 532.2 ml 50 ml 240 ml Output Total 1300 ml Balance 532.2 ml 50 ml -1060 ml medications Current Medications Medications Dose Ordered Sig/Jamil Route Start Time Stop Time Status Last Admin Dose Admin Azithromycin 250 ml @ 125 mls/hr DAILY IV 11/23/24 10:00 11/25/24 10:20 125 MLS/HR Ceftriaxone Sodium 50 ml @ 100 mls/hr DAILY@09 IV 11/23/24 09:00 11/25/24 09:52 100 MLS/HR Famotidine 20 mg Q12HR IV 11/22/24 22:00 11/25/24 21:40 20 MG Ibuprofen 600 mg Q6HP PRN PO 11/23/24 11:30 11/25/24 10:28 600 MG Acetaminophen/ Hydrocodone Bitart 1 tab Q6HPRN PRN PO 11/23/24 14:00 11/25/24 21:55 1 TAB Pregabalin 225 mg BID PO 11/23/24 22:00 11/25/24 21:41 225 MG Atorvastatin Calcium 40 mg HS PO 11/23/24 22:00 11/25/24 21:43 40 MG Baclofen 20 mg Q8HP PO 11/24/24 06:00 11/25/24 21:42 20 MG Potassium Chloride 40 meq DAILY PO 11/25/24 10:00 11/25/24 10:17 40 MEQ Ipratropium [place] 0.5 mg Q4HPRN PRN NEB 11/24/24 22:30 11/25/24 22:07 0.5 MG Levalbuterol HCl 1.25 mg Q4HPRN PRN NEB 11/24/24 23:30 11/25/24 22:06 1.25 MG Methylprednisolone Sodium Succinate 40 mg Q8HR IV 11/25/24 06:00 11/25/24 21:41 40 MG Carvedilol 6.25 mg Q12HR PO 11/25/24 11:45 11/25/24 21:42 6.25 MG Amiodarone HCl 200 mg Q12HR PO 11/25/24 11:45 11/25/24 21:59 200 MG Dabigatran 150 mg BID PO 11/25/24 22:00 11/25/24 21:41 150 MG objective Gen.: Patient lying in bed in no apparent distress. On supplemental oxygen. Head: Normocephalic, atraumatic. Eyes: EOMI/PERRLA. Ears: Normal hearing. Normal anatomy. Neck/trachea: Trachea midline, supple. Nose: Normal external anatomy. Mouth: Moist mucous membranes. Chest: Decreased air entry bilaterally. No wheezing or rhonchi. Cardiovascular: Positive S1, positive S2. Regular rate and rhythm. Abdomen: Positive bowel sounds in all 4 quadrants. Soft, non-tender, non- distended. : Deferred. Rectal: Deferred. Skin: Warm, dry. Intact. Extremities: 2+ radial pulses bilaterally. No lower extremity edema. Neuro: Awake, alert, oriented x3. No gross motor or sensory deficits. Cranial nerves II through XII intact. Gait not assessed. laboratory and microbiology Laboratory Tests 11/24/24 09:26 Test 11/24/24 09:26 Range/Units Serum Glucose 183 H 74-106 mg/dL Assessment/Plan Impression: Acute hypoxic respiratory failure Dependence on supplemental oxygen Dyspnea on exertion Acute Congestive heart failure exacerbation, EF 50% Atrial fibrillation Pneumonia, likely gram negative Pleural effusion, left Atelectasis Elevated D-dimer, ruled out PE/DVT Pericardial effusion. Obesity BMI 31.1 Events: Remains on supplemental oxygen, 3 LPM NC Taper O2 as tolerated Off dobutamine drip for inotropic support On Coreg PO Amiodarone Cardiology recs appreciated. On Pradaxa Continue bronchodilators Continue antibiotics Continue steroids Incentive spirometry On metolazone Off Lasix drip Monitor renal function. Monitor electrolytes. Supplement as necessary. Potassium supplementation Mag 2.3. Monitor ins and outs - not adherent w/ ins and outs. Awaiting transfer to [place]. Labs and imaging reviewed. Rest of plan as noted below. Plan: Supplemental oxygen Titrate to keep O2 sats above 92%. Continue antibiotics Incentive spirometry Cardiology recs appreciated. Monitor renal function. Monitor electrolytes. Supplement as necessary. Monitor ins and outs. Diet and lifestyle modifications for weight reduction Obesity - complicates all care DVT prophylaxis. Prognosis: Poor given patient's multiple co-morbidities. Rest of plan per hospitalist and other consultants. Thank you, Dr. Jaeger, for allowing me to participate in this patient's care. Further recommendations will depend on the patient's clinical course. Please do not hesitate to contact me if you have any questions or concerns. This medical document was created using an electronic medical record system with [employer] computerized dictation system. Although these documentations are being carefully reviewed, there may still be some phonetic and typographical changes. The errors are purely typographical, due to imperfection on the software program, and do not reflect any compromise in the patient's medical care. Plan discussed with: Patient, Other (NAHOMI Coats) REYNA WEBSTER MD Nov 25, 2024 23:28
[2024-11-26] VITALS (10 sets, daily range): BP systolic 107–135; BP diastolic 58–76; PULSE 61–90; RESP 16–26; TEMP 97.3–98.9; O2SAT 93–100
--- NOTE | 2024-11-26 00:33 | ECG ---
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
[2024-11-26] MEDS: CALCIUM CARB 500 MG CHEW TAB PO ONE (05:32)
[2024-11-26 06:09] LABS: Basophils # (auto) 0 10 ^3/uL (0-0.2); Eosinophils # (auto) 0 10 ^3/uL (0-0.8); Hemoglobin 9.6 g/dL (13.5-17.5); Lymphocytes # (auto) 0.7 10 ^3/uL (0.4-5.4); Monocytes # (auto) 0.4 10 ^3/uL (0-1.3); White Blood Cell 4.5 10^3/uL (4.4-10.8)
[2024-11-26 06:10] LABS: Basophils % (auto) 0.1 % (0.0-2.0); Hematocrit 29.9 % (41.0-53.0); Lymphocytes % (auto) 14.6 % (10.0-50.0); Mean Corpuscular Hemoglobin 23.4 pg (28.0-32.0); Mean Corpuscular Hgb Conc. 32.2 g/dL (32.0-36.0); Mean Corpuscular Volume 72.5 fL (80.0-100.0); Neutrophils # (auto) 3.5 10 ^3/uL (1.6-8.6); Neutrophils % (auto) 77.3 % (37.0-80.0); Nucleated Red Blood Cells % 0.2 %; Platelet Count (auto) 388 10^3/uL (140-450); Red Blood Cells 4.12 10^6/uL (4.5-5.90); Red Cell Distribution Width 18.7 % (11.8-14.3)
[2024-11-26 06:26] LABS: Anion Gap 7 (5-15); Calcium 9.6 mg/dL (8.7-10.4); Chloride 104 mmol/L (98-107); Potassium 3.8 mmol/L (3.5-5.1); Sodium 143 mmol/L (136-145)
[2024-11-26 06:27] LABS: INR 1.15 (0.9-1.15)
[2024-11-26 06:30] LABS: Carbon Dioxide 32 mmol/L (20-31); Glucose 169 mg/dL (74-106)
[2024-11-26 06:31] LABS: BUN/Creatinine Ratio 27.6 (10.0-20.0); Blood Urea Nitrogen 35 mg/dL (9-23)
--- NOTE | 2024-11-26 09:23 | ECG ---
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
--- NOTE | 2024-11-26 09:24 | ECG ---
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
--- NOTE | 2024-11-26 11:27 | ECG ---
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
--- NOTE | 2024-11-26 11:27 | ECG ---
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
--- NOTE | 2024-11-26 11:28 | ECG ---
[facility] Test Date: 2024-11-24 Test Time: 01:15:53 Pat Name: MARIELLA LOO Department: Room: 0289T A Gender: M Shank Sander: at : 1960 Requested By: PRANAV CISNEROS Order Number: [id number] Reading MD: Manuelito Lopez Measurements Intervals [place] Rate: 119 P: 0 [place]: 0 QRS: 27 QRSD: 92 T: 240 QT: 319 QTc: 449 Interpretive Statements Atrial fibrillation Low voltage, precordial leads Nonspecific T abnormalities, diffuse leads Electronically Signed On 11-28-2024 10:17:21 PST by Manuelito Lopez Please click the below link to view image of tracing.
[2024-11-26] MEDS: CYCLOBENZAPRINE HCL 10 MG TAB PO PRN (12:28)
[2024-11-26] MEDS ORDERED: THROAT LOZENGES(CEPASTAT) MT PRN (14:00)
[2024-11-26] MEDS: THROAT LOZENGES(CEPASTAT) MT PRN (14:52)
--- NOTE | 2024-11-26 22:53 | DVHPN2 ---
Progress Note - Dictate Date Seen: Nov 26, 2024 Medical Necessity Reason Pt with a Central, PICC or Fol: No Subjective Patient seen and examined at bedside. Remains on supplemental oxygen Overnight events reviewed. vital signs Vital Sign Date Time Temp Pulse Resp B/P (MAP) Pulse Ox O2 Delivery O2 Flow Rate FiO2 11/26/24 16:52 79 16 100 11/26/24 13:00 98.9 116/68 (84) 98.9 11/26/24 09:57 Nasal Cannula* 3 32 Total Intake and Output 11/25/24 11/25/24 11/26/24 15:00 23:00 07:00 Intake Total 800 ml 400 ml Output Total 1000 ml 275 ml Balance -200 ml 125 ml objective Gen.: Patient lying in bed in no apparent distress. On supplemental oxygen. Head: Normocephalic, atraumatic. Eyes: EOMI/PERRLA. Ears: Normal hearing. Normal anatomy. Neck/trachea: Trachea midline, supple. Nose: Normal external anatomy. Mouth: Moist mucous membranes. Chest: Decreased air entry bilaterally. No wheezing or rhonchi. Cardiovascular: Positive S1, positive S2. Regular rate and rhythm. Abdomen: Positive bowel sounds in all 4 quadrants. Soft, non-tender, non- distended. : Deferred. Rectal: Deferred. Skin: Warm, dry. Intact. Extremities: 2+ radial pulses bilaterally. No lower extremity edema. Neuro: Awake, alert, oriented x3. No gross motor or sensory deficits. Cranial nerves II through XII intact. Gait not assessed. laboratory and microbiology Laboratory Tests 11/26/24 05:30 Test 11/26/24 05:30 Range/Units Serum Glucose 169 H 74-106 mg/dL Assessment/Plan Impression: Acute hypoxic respiratory failure Dependence on supplemental oxygen Dyspnea on exertion Acute Congestive heart failure exacerbation, EF 50% Atrial fibrillation Pneumonia, likely gram negative Pleural effusion, left Atelectasis Elevated D-dimer, ruled out PE/DVT Pericardial effusion. Obesity BMI 31.1 Events: Remains on supplemental oxygen, 2 LPM NC Taper O2 as tolerated On Coreg PO Amiodarone Cardiology recs appreciated. Continue bronchodilators Continue antibiotics Continue steroids Incentive spirometry Maintain euvolemia Monitor renal function. Monitor electrolytes. Supplement as necessary. Potassium supplementation Monitor ins and outs Awaiting transfer to [place]. Labs and imaging reviewed. Rest of plan as noted below. Plan: Supplemental oxygen Titrate to keep O2 sats above 92%. Continue antibiotics Incentive spirometry Cardiology recs appreciated. Monitor renal function. Monitor electrolytes. Supplement as necessary. Monitor ins and outs. Diet and lifestyle modifications for weight reduction Obesity - complicates all care GI prophylaxis - Pepcid DVT prophylaxis. Prognosis: Guarded given patient's multiple co-morbidities. Rest of plan per hospitalist and other consultants. Thank you, Dr. Jaeger, for allowing me to participate in this patient's care. Further recommendations will depend on the patient's clinical course. Please do not hesitate to contact me if you have any questions or concerns. This medical document was created using an electronic medical record system with [employer] computerized dictation system. Although these documentations are being carefully reviewed, there may still be some phonetic and typographical changes. The errors are purely typographical, due to imperfection on the software program, and do not reflect any compromise in the patient's medical care. Plan discussed with: Patient, Other (NAOHMI Tovar) REYNA WEBSTER MD Nov 26, 2024 22:53
--- NOTE | 2024-12-17 16:45 | DVHDS2 ---
Discharge Summary Date of Admission Nov 22, 2024 at 21:53 Date of Discharge: Nov 23, 2024 Labs/Diagnostic Data: Laboratory Results Test 11/26/24 05:30 11/25/24 05:40 11/24/24 09:26 11/23/24 10:27 White Blood Count 4.5 10^3/uL (4.4-10.8) Red Blood Count 4.12 10^6/uL (4.5-5.90) Hemoglobin 9.6 g/dL (13.5-17.5) Hematocrit 29.9 % (41.0-53.0) Mean Corpuscular Volume 72.5 fL (80.0-100.0) Mean Corpuscular Hemoglobin 23.4 pg (28.0-32.0) Mean Corpuscular Hemoglobin Concent 32.2 g/dL (32.0-36.0) Red Cell Distribution Width 18.7 % (11.8-14.3) Platelet Count 388 10^3/uL (140-450) Mean Platelet Volume 8.0 fL (6.9-10.8) Neutrophils (%) (Auto) 77.3 % (37.0-80.0) Lymphocytes (%) (Auto) 14.6 % (10.0-50.0) Monocytes (%) (Auto) 8.0 % (0.0-12.0) Eosinophils (%) (Auto) 0.0 % (0.0-7.0) Basophils (%) (Auto) 0.1 % (0.0-2.0) Neutrophils # (Auto) 3.5 10 ^3/uL (1.6-8.6) Lymphocytes # (Auto) 0.7 10 ^3/uL (0.4-5.4) Monocytes # (Auto) 0.4 10 ^3/uL (0-1.3) Eosinophils # (Auto) 0 10 ^3/uL (0-0.8) Basophils # (Auto) 0 10 ^3/uL (0-0.2) Nucleated Red Blood Cells 0.2 % Prothrombin Time 12.0 sec (9.3-11.8) Prothrombin Time INR 1.15 (0.9-1.15) Sodium Level 143 mmol/L (136-145) Potassium Level 3.8 mmol/L (3.5-5.1) Chloride Level 104 mmol/L (98-107) Carbon Dioxide Level 32 mmol/L (20-31) Anion Gap 7 (5-15) Blood Urea Nitrogen 35 mg/dL (9-23) Creatinine 1.27 mg/dL (0.700-1.30) Glomerular Filtration Rate Calc 62 mL/min (>90) BUN/Creatinine Ratio 27.6 (10.0-20.0) Serum Glucose 169 mg/dL (74-106) Calcium Level 9.6 mg/dL (8.7-10.4) Magnesium Level 2.3 mg/dL (1.6-2.6) Differential Total Cells Counted 100.0 (100) Neutrophils % (Manual) 75 (37.0-80.0) Band Neutrophils % (Manual) 0 Lymphocytes % (Manual) 12 (10.0-50.0) Monocytes % (Manual) 13 (0-12) Eosinophils % (Manual) 0 (0-7) Basophils % (Manual) 0 (0.0-2.0) Metamyelocytes % (manual) 0 Myelocytes % (Manual) 0 Promyelocytes % (Manual) 0 Blast Cells % (Manual) 0 Reactive Lymphocytes 0 Platelet Estimate Adequate Hypochromasia (manual) Slight Microcytosis Slight Total Bilirubin 1.0 mg/dL (0.2-1.0) Aspartate Amino Transferase (AST) 46 U/L (13-40) Alanine Aminotransferase (ALT) 33 U/L (7-40) Alkaline Phosphatase 124 U/L (46-116) B-Type Natriuretic Peptide 167.01 pg/mL (0-100) Total Protein 7.3 g/dL (5.7-8.2) Albumin 4.2 g/dL (3.2-4.8) Hemoglobin A1c 5.8 % A1C (<5.7) Triglycerides Level 90 mg/dL (< 150) Cholesterol Level 99 mg/dL (< 200) LDL Cholesterol 53 mg/dL (< 100) HDL Cholesterol 24 mg/dL (40-59) Test 11/22/24 17:59 11/22/24 16:31 11/22/24 16:00 11/22/24 14:01 Troponin I High Sensitivity 13 ng/L (</=54) Thyroid Stimulating Hormone (TSH) 1.12 uIU/mL (0.55-4.78) Blood Gas Specimen Type Arterial Blood Gas Sample Site Left radial Blood Gas Patient Temperature 37.0 Arterial Blood Date Drawn [id number] Arterial Blood pH 7.456 (7.350-7.450) Arterial Blood Partial Pressure CO2 38.1 mmHg (35.0-48.0) Arterial Blood Partial Pressure O2 81.4 mmHg (83.0-108.0) Arterial Blood HCO3 26.2 mmol/L (21.0-28.0) Arterial Blood Oxygen Saturation 95.5 % (94.0-98.0) Arterial Blood Base Excess 2.3 mmol/L (-2.0-3.0) Arterial Blood Oxyhemoglobin 94.4 % (94.0-98.0) Arterial Blood Carboxyhemoglobin 0.4 % (0.5-1.5) Arterial Blood Methemoglobin 0.8 % (0.0-1.5) Anibal Test Yes Blood Gas Total Hemoglobin 10.90 g/dL (13.5-17.5) Blood Gas Liter Flow 2.50 Blood Gas Modality Nasal cannula FiO2 % 30.0 Lactic Acid Level 1.2 mmol/L (0.4-2.0) Influenza Type A Antigen Negative (Negative) Influenza Type B Antigen Negative (Negative) SARS-CoV-2 Antigen (Rapid) Negative (NEGATIVE) Test 11/22/24 13:57 11/22/24 13:41 Urine Color Yellow (Yellow) Urine Clarity Clear (Clear) Urine pH 5.5 (5.0-9.0) Urine Specific [place] 1.017 (1.001-1.035) Urine Protein Trace (Negative) Urine Ketones 1+ (Negative) Urine Blood Negative /uL (Negative) Urine Nitrite Negative (Negative) Urine Bilirubin Negative (Negative) Urine Urobilinogen 3 mg/dL (Negative) Urine Leukocyte Esterase Negative /uL (Negative) Urine RBC 1 /hpf (0 - 3) Urine WBC <1 /hpf (0 - 3) Urine Squamous Epithelial Cells Few /hpf (<5) Urine Bacteria None seen /hpf (None Seen) Urine Hyaline Casts Few /lpf (0 - 2) Urine Mucus Few (None Seen) Urine Glucose Normal mg/dL (Normal) D-Dimer, Quantitative 7.31 mg/L FEU (0.0-0.49) Other Laboratory Tests 11/26/24 05:30 Brief Hx & Hospital Course: Patient is a 64-year-old male with past medical history of CHF, anemia, neuropathy, dyslipidemia, atrial fibrillation diagnosed 2 weeks ago?, who came in due to shortness of breath. According to the patient, he has been having worsening shortness of breath for a few weeks. He notes that he has shortness of breath even at rest along with orthopnea and paroxysmal nocturnal dyspnea. He also complains of a productive cough with whitish sputum. Per patient, he recently completed cardiac workup at [facility] [facility] where he was told that the workup was unremarkable. On review of systems he is complaining of fatigue, shortness of breath, productive cough, dyspnea and urinary frequency. Chest x-ray showed left basilar opacities. CT angiography showed no pulmonary embolism, moderate pericardial effusion and trace left-sided pleural effusion. Acute hypoxic respiratory failure Pericardial effusion, moderate Acute on chronic CHF Atrial fibrillation with RVR; CHADS VASc 3 Ruled out pulmonary embolism Community-acquired pneumonia, Gram-positive versus Gram-negative Questionable sepsis due to above Anemia, chronic Peripheral neuropathy since undergoing laminectomy left lung pleural effusion fluid overload 11/23/2024: pulm to evaluate for pleural effusion 11/24/2024: -- cardio/pulm managing along -- continue with diuresis 11/25/2024: continue with current care. pulm/card to make recommendations 11/26/2024: [facility] wants pt to be transferred Patient is being transferred to [facility]. FABIOLA picked up the patient via gurney. Patient is alert and oriented x4. Condition at Discharge: Good Final Diagnosis/Problems List Discharge Disposition: Acute Care Facility Discharge Instruct/Medications Diet: Cardiac 2g Na,low cholest Activity: No Restrictions, As Tolerated Activity comment: transfer to [facility] per request Discharge Statement: "Patient was advised to return to the ER or call 911 if any headaches, dizziness, shortness of breath, chest pain, abdominal pain, bleeding, fevers, or worsening of medical condition. Patient was counseled about treatment plan, medications, possible side effects, patientverbalized understanding. All questions were answered to the best of my ability. This discharge took greater then 30 minutes in planning, reviewing documentation, counseling the patient, and discussing with other team members." ASSESSMENT ASSESSMENT Assessment Date of Service: Nov 26, 2024 Billing Provider: PRANAV CISNEROS DO Common Visit Codes: 74320-LAX/OBS DISCH DAY >30min PRANAV CISNEROS DO Dec 17, 2024 16:45
== END 2024-11-26 17:15 | disposition short-term general hospital (02) | DRG 871 ==
LOC: EDBD 12:30 → ER 12:30 → TELE 21:53 → TELE-WESTW 11-23 03:32
PROVIDERS: ADMIT Internal Medicine; ATTEND Internal Medicine
DX: A41.50 Gram-negative sepsis, unspecified (principal); I50.33 Acute on chronic diastolic (congestive) heart failure; J15.69 Pneumonia due to other Gram-negative bacteria; J96.01 Acute respiratory failure with hypoxia; J15.9 Unspecified bacterial pneumonia; I31.39 Other pericardial effusion (noninflammatory); J98.11 Atelectasis; Z20.822 Contact with and (suspected) exposure to COVID-19; E66.9 Obesity, unspecified; I48.91 Unspecified atrial fibrillation; R73.03 Prediabetes; E78.5 Hyperlipidemia, unspecified; G62.9 Polyneuropathy, unspecified; N18.9 Chronic kidney disease, unspecified; Z68.31 Body mass index [BMI] 31.0-31.9, adult; Z88.8 Allergy status to other drugs, medicaments and biological substances; Z99.81 Dependence on supplemental oxygen; D53.9 Nutritional anemia, unspecified
CPT/HCPCS: 36415; 36600; 71045; 71275; 80048; 80053; 80061; 81001; 82805; 83036; 83605; 83735; 83880; 84443; 84484; 85007; 85025; 85027; 85379; 85610; 87040; 87426; 87804; 93005; 93306; 93970; 94640; 99291; G0378; J0131; J3490